=== PATIENT | male | born 1960 | race Caucasian/White ===

== ENCOUNTER 2016-09-06 13:22 | Inpatient (IN) | payer OTHER ==
[~2016-09-06] VITALS: Ht 177.8 cm; Wt 89.4 kg
[~2016-09-06 13:22] MED LIST: DILANTIN100 M1 PO; KEPPRA 500MG T500 MG PO; KEPPRA1000 M1 PO; OXYCODONE5 M1 PO
--- NOTE | 2016-09-06 13:51 | NUR ---
BIBA FOR INTENTIONAL OVERDOSE OF KEFLEX, COUMADIN, LISINOPRIL AND DILANTIN. PT STATES HE TOOK AT LEAST 7 TABLETS OF EACH. HAS BEEN DEPRESSED DUE TO BEING UNEMPLOYED AND UNABLE TO PAY BILLS. UPON ARRIVAL PT AWAKE, ALERT, SLURRED SPEECH, UNCOORDINATED CLUMBSY MOVEMENT OF LIMBS. "I WAS STUPID" PT STATES. NO IV OR MEDS GIVEN BY EMS. GLUCOSE BY EMS 128. SKIN WARM AND DRY.
--- NOTE | 2016-09-06 13:51 | NUR ---
RECIEVED TO ROOM 17. PT AWAKE, ORIENTED X3. CLUMBSY UNCOORDINATED MOVEMENTS. TWO IVS STARTED. BEA BLACK IN TO SEE PT. LABS DRAWN. PT VOIDED IN URINAL. URINE TRIO SENT---BLUE, PINK. THAKUR, SST X2 AND LAB.
--- NOTE | 2016-09-06 13:52 | NUR ---
WANDED BY SECURITY. ARRIVED WEARING URINE SOAKED SHORTS/UNDERWEAR AND NO VALUABLES. NEED TO CLEAR MEDICALLY-PUT IN HOSP GOWN FOR EASE OF MEDICAL CARE
--- NOTE | 2016-09-06 13:54 | ED GENERAL ADULT ---
See Addendum History of Present Illness General Chief Complaint: Psychiatric Related Complaint Stated Complaint: OVERDOSE +SI Source: patient, family, EMS Exam Limitations: no limitations Vital Signs & Intake/Output Vital Signs & Intake/Output Vital Signs Date Time Temp Pulse Resp B/P B/P Pulse O2 O2 Flow FiO2 Mean Ox Delivery Rate 09/06 1709 66 16 114/82 95 Room Air 09/06 1542 Room Air 09/06 1539 96.8 76 18 124/79 96 Room Air 09/06 1330 96.7 81 20 131/77 95 Room Air Allergies Coded Allergies: erythromycin base (UNKNOWN 09/06/16) tetracycline (UNKNOWN 09/06/16) Triage Note: BIBA FOR INTENTIONAL OVERDOSE OF KEFLEX, COUMADIN, LISINOPRIL AND DILANTIN. PT STATES HE TOOK AT LEAST 7 TABLETS OF EACH. HAS BEEN DEPRESSED DUE TO BEING UNEMPLOYED AND UNABLE TO PAY BILLS. UPON ARRIVAL PT AWAKE, ALERT, SLURRED SPEECH, UNCOORDINATED CLUMBSY MOVEMENT OF LIMBS. "I WAS STUPID" PT STATES. NO IV OR MEDS GIVEN BY EMS. GLUCOSE BY EMS 128. SKIN WARM AND DRY. Triage Nurses Notes Reviewed? yes Onset: Abrupt Duration: hour(s):, constant, continues in ED, getting worse Timing: single episode today Injury Environment: home Severity: moderate, severe No Modifying Factors: none HPI: 56-year-old male past medical history of seizures, antiphospholipid antibody syndrome, and previous suicide attempts presents for evaluation after an intentional overdose. Patient states that around 8:30 this morning he took an overdose of Keflex, lisinopril, warfarin, and Dilantin. Patient is unsure exactly how much he took. This is not the first time he has tried intentional overdose. He was hospitalized at [facility] 3 weeks ago for a similar situation. Patient states he feels depressed and just wanted to end his life. He currently reports he feels fatigued but denies any pain. Denies any chest pain, shortness of breath, abdominal pain, bleeding, bruising nausea, vomiting, diarrhea or any other associated symptoms. (THEO TONEY,BEA) Reconcile Medications Levetiracetam (Keppra) 1,000 MG TABLET 1 TAB PO BID SEIZURES (Reported) Lisinopril 10 MG TABLET 1 TAB PO DAILY HEART (Reported) Phenytoin (Dilantin) 100 MG CAPSULE 5 CAP PO Q48 SEIZURES (Reported) Phenytoin (Dilantin) 100 MG CAPSULE 6 CAP PO Q48 SEIZURES (Reported) Warfarin Sodium 7.5 MG TABLET 1 TAB PO DAILY BLOOD THINNER (Reported) (JENNIFER DRUMMOND,MAREN Hodge) Past History Travel History Traveled to [place] past 21 day No Medical History Any Pertinent Medical History? see below for history Neurological: seizure EENT: NONE Cardiovascular: NONE Respiratory: NONE Gastrointestinal: NONE Hepatic: NONE Renal: NONE Surgical History Surgical History: none Psychosocial History What is your primary language Malawian Family History Hx Contributory? No (THEO TONEY,BEA) Review of Systems Review of Systems Constitutional: Reports: see HPI, weakness. EENTM: Reports: no symptoms. Respiratory: Reports: no symptoms. Cardiovascular: Reports: no symptoms. GI: Reports: no symptoms. Genitourinary: Reports: no symptoms. Musculoskeletal: Reports: no symptoms. Skin: Reports: no symptoms. Neurological/Psychological: Reports: see HPI (si), depressed. Hematologic/Endocrine: Reports: no symptoms. Immunologic/Allergic: Reports: no symptoms. All Other Systems: Reviewed and Negative (THEO TONEY,BEA) Physical Exam Physical Exam General Appearance: well developed/nourished, no apparent distress, alert, anxious, lethargic Comments: General: Hemodynamically stable. Afebrile. Well-developed well-nourished person in no acute distress. Head: Atraumatic, normocephalic Eyes: EOMI bilaterally, PERRLA, conjunctiva are not injected, no discharge, no nystagmus, fundus grossly normal bilaterally Nose: Atraumatic, no rhinorrhea, mucosa is not erythematous, no epistaxis. Sinuses are non-tender Ears: TM pearly rosa color bilaterally, external canal is clear, no discharge, hearing is normal Mouth: Appropriate dentition, no gingival bleeding, moist mucus membranes, no oral lesions, tonsils not erythematous or enlarged and free of exudate. Uvula rises midline. Neck: Supple, full active ROM, no lymphadenopathy, no midline tenderness to palpation, no thyromegaly, no tracheal deviation. Back: Non-tender, full active ROM, no scoliosis, no CVA tenderness Cardiovascular: regular rate and rhythm, no murmurs, rubs, or gallops. No JVD Respiratory: Chest is nontender. Regular respiratory rate and effort. No accessory muscle use. Lungs clear to auscultation bilaterally. Abdomen: Soft, non-tender, non-distended, no organomegaly. No rebound tenderness or guarding. Normoactive bowel sounds. Extremities: No edema. No gross deformities. No joint swelling. No calf swelling or tenderness. Full active and passive ROM. Strength 5/5 in upper and lower extremities. Peripheral pulses 2+ bilaterally, Patellar DTR 2+ Neuro: No confusion. Motor and sensory function is intact. Appropriate gait. Cerebellar function intact. Skin: Warm and dry. Appropriate turgor. No lesions or bruising. No appreciable rash on exposed skin. Core Measures ACS in differential dx? No CVA/TIA Diagnosis: No Severe Sepsis Present: No Septic Shock Present: No (THEO TONEY,BEA) Progress Differential Diagnoses I considered the following diagnoses in my evaluation of the patient: Plan of Care: Orders Procedure Date/time Status Patient Data 09/06 1723 Active Admit to inpatient 09/06 1638 Active Add-on Test (ER Only) 09/06 1628 Active AMMONIA LEVEL 09/06 1420 Complete Intake & Output 09/06 1415 Active Add-on Test (ER Only) 09/06 1414 Active Add-on Test (ER Only) 09/06 1404 Active PROTHROMBIN TIME 09/06 1345 Complete MAGNESIUM 09/06 1345 Complete ETHANOL 09/06 1345 Complete TYPE & SCREEN (NOT X-MATCH) 09/06 1345 Active Add-on Test (ER Only) 09/06 1343 Active Telemetry/Transfer Professor 09/06 1329 Active Continuous Observation Monitor 09/06 1329 Active URINE DRUGS OF ABUSE 09/06 1329 Complete URINALYSIS 09/06 1329 Complete ACETOMINOPHEN 09/06 1329 Complete TROPONIN LEVEL 09/06 1329 Complete SALICYLATE 09/06 1329 Complete DILANTIN 09/06 1329 Complete COMPREHENSIVE METABOLIC PANEL 09/06 1329 Complete CBC WITHOUT DIFFERENTIAL 09/06 1329 Complete EKG 09/06 1329 Active Laboratory Tests 09/06/16 1420: Ammonia 27 09/06/16 1345: Urine Opiates Screen < 100.00, Methadone Screen < 40, Barbiturate Screen 75, Ur Phencyclidine Scrn < 6.00, Amphetamines Screen < 100, U Benzodiazepines Scrn < 85, Urine Cocaine Screen < 50, Urine Cannabis Screen < 5.00 09/06/16 1345: Anion Gap 10, Estimated GFR > 60, BUN/Creatinine Ratio 15.0, Glucose 134 H, Calcium 9.5, Magnesium 1.8, Total Bilirubin 0.4, AST 22, ALT 41, Alkaline Phosphatase 95, Troponin I < 0.01, Total Protein 6.5, Albumin 4.3, Globulin 2.2, Albumin/Globulin Ratio 2.0, PT 27.9 H, INR 2.68 H, CBC w Diff NO MAN DIFF REQ, RBC 4.53 L, MCV 97.3 H, MCH 33.0 H, RDW 12.5, MPV 7.7, Gran % 71.3, Lymphocytes % 20.7, Monocytes % 6.1, Eosinophils % 1.3, Basophils % 0.6, Absolute Granulocytes 4.2, Absolute Lymphocytes 1.2, Absolute Monocytes 0.4, Absolute Eosinophils 0.1, Absolute Basophils 0, PUBS MCHC 33.9, Salicylates < 1.0, Acetaminophen < 10.0 L, Phenytoin > 40.0 H, Serum Alcohol < 10.0, Urine Color STRAW, Urine Clarity CLEAR, Urine pH 6.0, Ur Specific [place] <= 1.005, Urine Protein NEG, Urine Ketones NEG, Urine Nitrite NEG, Urine Bilirubin NEG, Urine Urobilinogen 0.2, Ur Leukocyte Esterase NEG, Ur Microscopic SEDIMENT EXAMINED, Urine RBC RARE, Urine WBC RARE, Ur Epithelial Cells RARE, Urine Bacteria RARE H, Urine Mucus FEW, Urine Hemoglobin TRACE-INTACT H, Urine Glucose NEG Patient is currently neurologically intact. No signs of bleeding or bruising. Spoke with Yesenia at [facility] control. She recommends supportive care with IV fluids. She also recommends serial Dilantin levels every 6-8 hours until they start trending down. Patient will also need to be admitted because warfarin does not peek for another 3 or 4 days. She recommends ammonia levels coagS, and close monitoring. Patient's EKG does not show any signs of QTC prolongation. Patient will need to be admitted for further evaluation however poison control recommends monitoring in the emergency department for several hours until labs are back and appropriate disposition can be made. 3 PM: Initial lab results are all within normal limits. Kidney function a large lites are within normal limits. Patient is continued to be monitored he remains neurologically intact and hemodynamically stable. PT/INR is within normal limits. Upon reassessing patient instead of taking Keflex he is now saying he took Keppra. he'll be admitted to the ICU for close monitoring. Patient has remained neurologically intact. So far blood work is looking within normal limits. Case discussed with Dr. Mon he agrees the plan. (THEO TONEY,BEA) Diagnostic Imaging: Viewed by Me: CT Scan. Discussed w/RAD: CT Scan. Initial ED EKG: normal sinus rhythm, BORDERLINE T WAVE ABN INFERIOR LEADS Comments: PATIENT: MELISSA DOLL PRESENT AGE: 56 PATIENT ACCOUNT NO: [id number] : 56 LOCATION: [facility] ORDERING PHYSICIAN: BEA VENEGAS PA-C SERVICE DATE: 09/06/16 EXAM TYPE: CAT - CT HEAD WO IV CONTRAST EXAMINATION: CT HEAD WITHOUT CONTRAST CLINICAL INFORMATION: Fall, on Coumadin. COMPARISON: None. TECHNIQUE: Contiguous axial imaging was performed from the skull base to vertex without intravenous contrast. DLP: 1813 mGy-cm. FINDINGS: There is no evidence of acute intracranial hemorrhage or territorial infarction. No abnormal mass effect or midline shift is seen. There is a small chronic left occipital infarct. Rosa to white matter differentiation is otherwise well preserved. No extra-axial fluid collections are identified. No hydrocephalus. Proportional prominence of the ventricles and sulcal spaces is consistent with mild volume loss. Patchy periventricular and deep white matter hypoattenuation is consistent with mild small vessel ischemic changes. The osseous structures and soft tissues are normal. Mild opacification of the left maxillary sinus. The mastoid air cells and visualized portions of the paranasal sinuses are otherwise well aerated. IMPRESSION: No acute intracranial pathology. DICTATED BY: IVORY DRUMMOND,CHARLES DATE/TIME DICTATED:09/06/161442 OVERNIGHT CAREGIVER:FAB DATE/TIME TRANSCRIBED:09/06/161442 CONFIDENTIAL, DO NOT COPY WITHOUT APPROPRIATE AUTHORIZATION. (THEO TONEY,BEA) Departure Departure Disposition: STILL A PATIENT Condition: Stable Clinical Impression Primary Impression: Dilantin overdose Qualifiers: Encounter type: initial encounter Injury intent: intentional self- harm Qualified Code: T42.0X2A - Poisoning by hydantoin derivatives, intentional self-harm, initial encounter Secondary Impressions: Suicide attempt by drug ingestion Qualifiers: Encounter type: initial encounter Qualified Code: T50.902A - Poisoning by unspecified drugs, medicaments and biological substances, intentional self-harm, initial encounter Referrals: LACY DRUMMOND,TIFFANIE Dillard (PCP/Family) Departure Forms: Customer Survey General Discharge Information (BEA VENEGAS PA-C) Admission Note Spoke With: SIENNA SHAH MD Documentation of Exam: Documentation of any treatments & extenuating circumstances including Concerns Regarding Discharge (functional status, medication knowledge or non-compliance, living conditions, etc.) that warrant an admission rather than observation: [PT TO GO TO ICU FOR CLOSE MONITORING. PT'S DIALNTIN LEVEL IS GREATER THAN 40. HIS INR IS CURRENTLY THERAPUTIC BUT IT MAY GO UP IF HE OVERDOSED ON COUMADIN WELL. WILL HOLD OFF ON FFP AND VIT K FOR NOW BUT WILL MONITOR CLOSELY, WILL NEED 1 TO 1 SITTER, PSYCH CONSULT, FOLLOW LABS CLOSELY] PA/DENSITY CONTROL PUNCHER Co-Sign Statement Statement: ED Attending supervision documentation- [X] I saw and evaluated the patient. I have also reviewed all the pertinent lab results and diagnostic results. I agree with the findings and the plan of care as documented in the PA's/DENSITY CONTROL PUNCHER's documentation. [X] I have reviewed the ED Record and agree with the PA's/DENSITY CONTROL PUNCHER's documentation. [] Additions or exceptions (if any) to the PAs/DENSITY CONTROL PUNCHER's note and plan are summarized below: [] (JENNIFER DRUMMOND,MAREN Hodge) Critical Care Note Critical Care Note Critical Care Time: non-applicable (BEA VENEGAS PA-C)
[2016-09-06 13:56] LABS: ABSOLUTE BASOPHIL COUNT 0 /CUMM (0.0-0.2); ABSOLUTE EOSINOPHIL COUNT 0.1 /CUMM (0.0-0.7); ABSOLUTE GRANULOCYTE CT 4.2 /CUMM (1.4-6.5); ABSOLUTE LYMPH COUNT 1.2 /CUMM (1.2-3.4); ABSOLUTE MONOCYTE COUNT 0.4 /CUMM (0.10-0.60); BASOPHIL % 0.6 % (0.0-2.0); EOSINOPHIL % 1.3 % (0-5); GRANULOCYTE % 71.3 % (42.2-75.2); HEMATOCRIT 44.1 % (42-52); MEAN CORPUSCULAR HGB CONC 33.9 G/DL (33.0-37.0); MEAN CORPUSCULAR VOLUME 97.3 FL (80.0-94.0); MEAN PLATELET VOLUME 7.7 FL (7.4-10.4); PLATELET COUNT 248 /CUMM (130-400); RBC DISTRIBUTION WIDTH 12.5 % (11.5-14.5); RED BLOOD CELL CT 4.53 /CUMM (4.70-6.10); WHITE BLOOD CELL COUNT 5.8 /CUMM (4.8-10.8)
--- NOTE | 2016-09-06 14:07 | NUR ---
BEA VENEGAS IN TO SEE PT. DTR AT BEDSIDE
[2016-09-06] MEDS ORDERED: DILANTIN100 M1 PO (14:10)
[2016-09-06] MEDS ORDERED: LISINOPRIL10 M1 PO (14:10)
[2016-09-06] MEDS ORDERED: WARFARIN SODIU7.5 M1 PO (14:12)
[2016-09-06] MEDS ORDERED: WARFARIN SODIUM5 M1 PO (14:12)
--- NOTE | 2016-09-06 14:15 | NUR ---
IVF BOLUS STARTED
--- NOTE | 2016-09-06 14:30 | NUR ---
AMMONIA LEVEL SENT TO LAB
--- NOTE | 2016-09-06 14:42 | NUR ---
PT TAKEN TO CT SCAN
--- NOTE | 2016-09-06 14:51 | CT SCAN REPORT ---
EXAMINATION: CT HEAD WITHOUT CONTRAST CLINICAL INFORMATION: Fall, on Coumadin. COMPARISON: None. TECHNIQUE: Contiguous axial imaging was performed from the skull base to vertex without intravenous contrast. DLP: 1813 mGy-cm. FINDINGS: There is no evidence of acute intracranial hemorrhage or territorial infarction. No abnormal mass effect or midline shift is seen. There is a small chronic left occipital infarct. Rosa to white matter differentiation is otherwise well preserved. No extra-axial fluid collections are identified. No hydrocephalus. Proportional prominence of the ventricles and sulcal spaces is consistent with mild volume loss. Patchy periventricular and deep white matter hypoattenuation is consistent with mild small vessel ischemic changes. The osseous structures and soft tissues are normal. Mild opacification of the left maxillary sinus. The mastoid air cells and visualized portions of the paranasal sinuses are otherwise well aerated. IMPRESSION: No acute intracranial pathology.
--- NOTE | 2016-09-06 15:39 | NUR ---
PT RESTING QUIETLY. CONTINUES TO BE ALERT, ORIENTED. SPEECH VERY SLURRED. MUSCLES COORDINATION WEAK AND CLUMSY. PT CANNOT SIT UPRIGHT WITHOUT FALLING TO THE SIDE. ASSISTED WITH URINAL. DTR AT BEDSIDE. PT COOPERATIVE
--- NOTE | 2016-09-06 15:40 | NUR ---
REMAINS IN NSR ON MONITOR
--- NOTE | 2016-09-06 15:45 | NUR ---
CALLED TO LAB TO INQUIRE ABOUT INR RESULTS. LAB STATES THEY WILL HAVE RESULTS SHORTLY
[2016-09-06 16:24] LABS: PT 27.9 SEC (9.4-12.5)
--- NOTE | 2016-09-06 17:09 | NUR ---
PT RESTING QUIETLY. DROWSY, EASILY AROUSABLE TO VERBAL STIMULI. NSR ON MONITOR. RESP EVEN AND UNLABORED
--- NOTE | 2016-09-06 18:05 | NUR ---
PT UNABLE TO USE URINAL WITHOUT ASSISTANCE. HAS WET STRETCHER TWICE. CONDOM CATHETER PLACED ON PT
--- NOTE | 2016-09-06 19:13 | History & Physical ---
See Addendum General Information and HPI Source of Information: patient, family History of Present Illness: He is 56-year-old man with past medical history of seizures on Dilantin and Keppra, history of multiple strokes, antiphospholipid antibody syndrome and history of blood clot in brain on coumadin, hypertension and previous suicide attempt for which he was admitted at [facility] 3 weeks ago. He was BIBA after he was found altered and lethergic by his family. Patient admitted intentional overdose of his Keppra, Dilantin, Coumadin and lisinopril at 8am this morning. He also admitted being depressed recently due to being unemployed and unable to pay pills. Upon arrival to ER he was alert, awake, oriented. His vitals were temperature 96.7, pulse 81, respiratory rate 20, blood pressure 131/77 and oxygen saturation 95% on room air. Pertinent labs on admission: CBC, BP unremarkable. Albumin normal. LFTs are also normal. INR 2.68. U tox positive for Dilantin levels > 40. Neg acetaminophen or Salicylate levels. EKG: Mild T wave changes in inferior leads. No QRS or QTc interval prolongation. CT head: No acute intracranial pathology. He was given 1 L bolus of normal saline in ER. ER physician contacted poison control who recommended supportive care with IV fluids, serial Dilantin levels every 6-8 hours until they start trending down and closer monitoring. Upon my evaluation patient is drowsy with slurred speech but arousable. He is oriented 3. He is complaining of nausea, Gen weakness and denies any chest pain or discomfort, palpitations, breathing difficulty, abdominal pain, any change in urinary or bowel habits. He also denies any headache, vision changes, weakness or numbness of any part of his body. Daughter was at bedside. He lives alone in his apartment. He sees a neurologist at [facility]. Patient denies smoking. He normally drinks 2 shots of vodka every day. Last drink 2 weeks ago. Currently is unemployed. 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 Denies using any illicit drugs like marijuana or cocaine. Allergies/Medications Allergies: Coded Allergies: erythromycin base (UNKNOWN 09/06/16) tetracycline (UNKNOWN 09/06/16) Home Med list Levetiracetam (Keppra) 1,000 MG TABLET 1 TAB PO BID SEIZURES (Reported) Lisinopril 10 MG TABLET 1 TAB PO DAILY HEART (Reported) Phenytoin (Dilantin) 100 MG CAPSULE 5 CAP PO Q48 SEIZURES (Reported) Phenytoin (Dilantin) 100 MG CAPSULE 6 CAP PO Q48 SEIZURES (Reported) Warfarin Sodium 7.5 MG TABLET 1 TAB PO DAILY BLOOD THINNER (Reported) Past History Travel History Traveled to [place] past 21 day No Medical History Neurological: CVA, seizure EENT: NONE Cardiovascular: hypertension Respiratory: NONE Gastrointestinal: NONE Hepatic: NONE Renal: NONE Blood Disorders: antiphospholipid antibody syndrome Isolation History: Standard Surgical History Surgical History: none Past Family/Social History Family History Relations & Conditions if any FATHER ( of stroke at age 51). MOTHER (Alzheimer's). Psychosocial History Where do you live? Home Who Do You Live With? self Smoking Status: Never Smoked ETOH Use: alcoholic Illicit Drug Use: denies illicit drug use Employment History Employment Unemployed Review of Systems Review of Systems Constitutional: Reports: see HPI. Exam & Diagnostic Data Last 24 Hrs of Vital Signs/I&O Vital Signs Date Time Temp Pulse Resp B/P B/P Pulse O2 O2 Flow FiO2 Mean Ox Delivery Rate 09/06 1709 66 16 114/82 95 Room Air 09/06 1542 Room Air 09/06 1539 96.8 76 18 124/79 96 Room Air 09/06 1330 96.7 81 20 131/77 95 Room Air Intake & Output 09/06 1600 09/06 0800 09/06 0000 Intake Total 1000 Output Total 200 Balance 800 Intake, IV 1000 Output, Urine 200 Patient 180 lb Weight Weight Reported by Patient Measurement Method Physical Exam General Appearance Alert, Oriented X3, Cooperative, lethergic HEENT dry mucous membranes Neck No JVD Cardiovascular Regular Rate, No Murmurs Lungs Clear to Auscultation Abdomen Normal Bowel Sounds, Soft, No Tenderness Neurological Strength at 5/5 X4 Ext, Sensation Intact, Cranial Nerves 3-12 NL, slurred speech, test was attempted to check for nystagmus but patient was not following finger movement, poor coordination with finger-nose test, gait was not checked Extremities No Edema Last 24 Hrs of Labs/Naif: Laboratory Tests 09/06/16 1420: Ammonia 27 09/06/16 1345: Urine Opiates Screen < 100.00, Methadone Screen < 40, Barbiturate Screen 75, Ur Phencyclidine Scrn < 6.00, Amphetamines Screen < 100, U Benzodiazepines Scrn < 85, Urine Cocaine Screen < 50, Urine Cannabis Screen < 5.00 09/06/16 1345: Anion Gap 10, Estimated GFR > 60, BUN/Creatinine Ratio 15.0, Glucose 134 H, Calcium 9.5, Magnesium 1.8, Total Bilirubin 0.4, AST 22, ALT 41, Alkaline Phosphatase 95, Troponin I < 0.01, Total Protein 6.5, Albumin 4.3, Globulin 2.2, Albumin/Globulin Ratio 2.0, PT 27.9 H, INR 2.68 H, CBC w Diff NO MAN DIFF REQ, RBC 4.53 L, MCV 97.3 H, MCH 33.0 H, RDW 12.5, MPV 7.7, Gran % 71.3, Lymphocytes % 20.7, Monocytes % 6.1, Eosinophils % 1.3, Basophils % 0.6, Absolute Granulocytes 4.2, Absolute Lymphocytes 1.2, Absolute Monocytes 0.4, Absolute Eosinophils 0.1, Absolute Basophils 0, PUBS MCHC 33.9, Salicylates < 1.0, Acetaminophen < 10.0 L, Phenytoin > 40.0 H, Serum Alcohol < 10.0, Urine Color STRAW, Urine Clarity CLEAR, Urine pH 6.0, Ur Specific [place] <= 1.005, Urine Protein NEG, Urine Ketones NEG, Urine Nitrite NEG, Urine Bilirubin NEG, Urine Urobilinogen 0.2, Ur Leukocyte Esterase NEG, Ur Microscopic SEDIMENT EXAMINED, Urine RBC RARE, Urine WBC RARE, Ur Epithelial Cells RARE, Urine Bacteria RARE H, Urine Mucus FEW, Urine Hemoglobin TRACE-INTACT H, Urine Glucose NEG Assessment/Plan Assessment: He is 56-year-old man with past medical history of seizures on Dilantin and Keppra, history of multiple strokes, antiphospholipid antibody syndrome and history of blood clot in brain on coumadin, hypertension and previous suicide attempt for which he was admitted at [facility] 3 weeks ago. Upon arrival to ER he was alert, awake, oriented. His vitals were temperature 96.7, pulse 81, respiratory rate 20, blood pressure 131/77 and oxygen saturation 95% on room air. Pertinent labs on admission: CBC, BP unremarkable. Albumin normal. LFTs are also normal. INR 2.68. U tox positive for Dilantin levels > 40. Neg acetaminophen or Salicylate levels. EKG: Mild T wave changes in inferior leads. No QRS or QTc interval prolongation. CT head: No acute intracranial pathology. He was given 1 L bolus of normal saline in ER. patient is going to be admitted in ICU because of polypharmacy overdose (Keppra, Dilantin, Coumadin and lisinopril) and closer monitoring. PLAN * Closer ICU monitoring * Serial EKGs to assess QRS are QTc intervals * Serial Dilantin levels every 6-8 hours until start trending down * Watch for worsening of mental status/coma * Neuro checks every 4 hours * Accu-Cheks every 4 hours * Monitoring of electrolytes, Coags and LFTs * Gentle IV hydration * Will hold all his home medications for now * Ativan as needed in case of seizures * Aspiration and seizure precautions * Fall precautions * Watch for bleeding * Psych consult * DVT prophylaxis, ALPS * Continue 1:1 sitter * Nothing by mouth for now * SWALLOW EVAL in am * PT eval and treatment * Full code * JERRICA Karolina [phone] As Ranked By This Provider Problem List: 1. Suicide attempt by drug ingestion Qualifiers Encounter type: initial encounter Qualified Code: T50.902A - Poisoning by unspecified drugs, medicaments and biological substances, intentional self-harm, initial encounter Core Measures/Miscellaneous Acute Coronary Syndrome ACS Diagnosis: No Cerebrovascular Accident CVA/TIA Diagnosis: No Congestive Heart Failure CHF Diagnosis: No VTE (View Protocol) VTE Risk Factors: Acute medical illness, Age > 40 [facility] prophylaxis d/t: No contraindications No VTE Pharm Prophylaxis d/t: Blood coag disorder VTE Diagnosis: No VTE Type: NONE VTE Confirmed by (Test): NONE Sepsis (View Protocol) Severe Sepsis Present: No Septic Shock Septic Shock Present: No Miscellaneous Documentation Attending Case Discussed With: SIENNA SHAH MD Primary Care Physician: TIFFANIE HOUSE MD Patient sees these Specialists Neuro at [facility] Level of Patient Care: Critical Care (CRI) Consults Needed: Consulting Specialty: Psychiatry Consulting Physician: suicide attempt, depression
--- NOTE | 2016-09-06 19:19 | NUR ---
PT HAS BED 112-1
--- NOTE | 2016-09-06 19:44 | NUR ---
PT SLEEPING. AT BEDSIDE, GIVEN UPDATE. ASKING TO SPEAK WITH
--- NOTE | 2016-09-06 19:45 | NUR ---
REPEAT LABS DRAWN SST, BLUE PER ORDER. 3 PINK TOPS DRAWN PER REQUEST OF BLOOD BANK
[2016-09-06 20:22] LABS: PT 36.9 SEC (9.4-12.5)
--- NOTE | 2016-09-06 20:36 | NUR ---
REPORT CALLED TO SHELL IN ICU
--- NOTE | 2016-09-06 20:45 | NUR ---
IVF AT 75CC/HR STARTED
--- NOTE | 2016-09-06 20:47 | NUR ---
PT PEPPER RAMIREZ-ICU RESIDENT NOTIFIED. STATES SHE WILL ORDER MEDICATION FOR PT
--- NOTE | 2016-09-06 21:00 | NUR ---
PTS MEDICATIONS AND CLOTHING GIVEN TO TO TAKE HOME. NO OTHER VALUABLES OR BELONGING REMAINED WITH PT OR IN ED SAFE/CLOSET
[2016-09-06 21:35] VITALS: BP 110/82
[2016-09-06 22:00] VITALS: BP 92/66
[2016-09-07] VITALS (12 sets, daily range): BP systolic 90–136; BP diastolic 50–82
[2016-09-07 01:35] LABS: PT 43.2 SEC (9.4-12.5)
--- NOTE | 2016-09-07 02:13 | NUR ---
@2114 PT ARRIVED TO FLOOR FROM ER AWAKE AND ALERT X3, HR SR 60'S TO 70'S, SBP 90'S TO 100'S. NIH SCALE 3, FOLLOWS ALL COMMANDS, PUPILS 5MM AND BRISK. DR. CAMPOVERDE TO BEDSIDE TO ASSESS PT AND TALK WITH . POC DISCUSSED WITH BOTH PT AND , IVF, BLOODWORK AND EKG. SKIN INTACT NO EDEMA, PT DOES HAVE MULTIPLE FATTY TISSUE SPOTS ON UPPER EXTREMETIES, PER BASELINE. 1:1 SITTER MAINTAINED.
[2016-09-07 05:18] LABS: ABSOLUTE BASOPHIL COUNT 0 /CUMM (0.0-0.2); ABSOLUTE EOSINOPHIL COUNT 0 /CUMM (0.0-0.7); ABSOLUTE GRANULOCYTE CT 5.4 /CUMM (1.4-6.5); ABSOLUTE LYMPH COUNT 0.7 /CUMM (1.2-3.4); ABSOLUTE MONOCYTE COUNT 0.4 /CUMM (0.10-0.60); BASOPHIL % 0.3 % (0.0-2.0); EOSINOPHIL % 0.5 % (0-5); GRANULOCYTE % 83.4 % (42.2-75.2); HEMATOCRIT 39.4 % (42-52); MEAN CORPUSCULAR HGB 33.2 PG (27.0-31.0); MEAN CORPUSCULAR HGB CONC 34.1 G/DL (33.0-37.0); MEAN CORPUSCULAR VOLUME 97.5 FL (80.0-94.0); MEAN PLATELET VOLUME 7.4 FL (7.4-10.4); PLATELET COUNT 202 /CUMM (130-400); RBC DISTRIBUTION WIDTH 12.8 % (11.5-14.5); RED BLOOD CELL CT 4.04 /CUMM (4.70-6.10); WHITE BLOOD CELL COUNT 6.4 /CUMM (4.8-10.8)
[2016-09-07 05:25] LABS: PT 60.6 SEC (9.4-12.5)
--- NOTE | 2016-09-07 08:00 | NUR ---
RECEIVED @ 0700, ALERT/ORIENTED X 2-3 BUT EASILY REORIENTED, STRANGE AFFECT SB-NSR 50S-60S, SBP=90S-100S, NO CHEST PAIN C/O SOME NUMBNESS/PAIN TO LEFT ARM, BUT IS BASELINE GIVEN HIS STROKE HISTORY. NO FACIAL DROOP, NIH-0, CIWA-0. PATIENT DENIES ANXIETY BUT IS BACK AND FORTH ABOUT HAVING SUICIDAL THOUGHTS. 1:1 SITTER AT BEDSIDE AWAITING PSYCH EVAL. [place] CATH IN PLACE/WORKING WELL DRAINING CLEAR YELLOW URINE. D5-1/2 NS @ 75 MLS/HR. MONITORING COUMADIM/DILANTIN. SAFETY MAINTAINED, EMOTIONAL REASSURANCE GIVEN.
--- NOTE | 2016-09-07 08:29 | Cons- CRCU ---
General Information and HPI Allergies/Medications Allergies: Coded Allergies: erythromycin base (UNKNOWN 09/06/16) tetracycline (UNKNOWN 09/06/16) Home Med List: Levetiracetam (Keppra) 1,000 MG TABLET 1 TAB PO BID SEIZURES (Reported) Lisinopril 10 MG TABLET 1 TAB PO DAILY HEART (Reported) Phenytoin (Dilantin) 100 MG CAPSULE 5 CAP PO Q48 SEIZURES (Reported) Phenytoin (Dilantin) 100 MG CAPSULE 6 CAP PO Q48 SEIZURES (Reported) Warfarin Sodium 7.5 MG TABLET 1 TAB PO DAILY BLOOD THINNER (Reported) Past History Travel History Traveled to [place] past 21 day No Medical History Blood Transfusion Hx: No Neurological: CVA, seizure EENT: NONE Cardiovascular: hypertension Respiratory: NONE Gastrointestinal: NONE Hepatic: NONE Renal: NONE Musculoskeletal: NONE Psychiatric: depression Endocrine: NONE Blood Disorders: antiphospholipid antibody syndrome Cancer(s): NONE EDGE GLUER/Reproductive: NONE Surgical History Surgical History: 1 Family History Relations & Conditions If Any: FATHER ( of stroke at age 51). MOTHER (Alzheimer's). Psychosocial History Where Do You Live? Home Who Do You Live With? self Smoking Status: Former Smoker ETOH Use: alcoholic Illicit Drug Use: denies illicit drug use Employment History Employment: Unemployed Assessment/Plan Consult Acknowledgment - Thank you for your consult request.
[2016-09-07 11:37] LABS: ABSOLUTE BASOPHIL COUNT 0 /CUMM (0.0-0.2); ABSOLUTE EOSINOPHIL COUNT 0.1 /CUMM (0.0-0.7); ABSOLUTE GRANULOCYTE CT 5.5 /CUMM (1.4-6.5); ABSOLUTE LYMPH COUNT 0.8 /CUMM (1.2-3.4); ABSOLUTE MONOCYTE COUNT 0.5 /CUMM (0.10-0.60); BASOPHIL % 0.2 % (0.0-2.0); EOSINOPHIL % 0.8 % (0-5); GRANULOCYTE % 80.5 % (42.2-75.2); HEMATOCRIT 42.1 % (42-52); MEAN CORPUSCULAR HGB 33.1 PG (27.0-31.0); MEAN CORPUSCULAR HGB CONC 33.7 G/DL (33.0-37.0); MEAN CORPUSCULAR VOLUME 98.2 FL (80.0-94.0); MEAN PLATELET VOLUME 7.3 FL (7.4-10.4); PLATELET COUNT 242 /CUMM (130-400); RBC DISTRIBUTION WIDTH 12.4 % (11.5-14.5); RED BLOOD CELL CT 4.28 /CUMM (4.70-6.10); WHITE BLOOD CELL COUNT 6.8 /CUMM (4.8-10.8)
[2016-09-07 12:06] LABS: PT 72.8 SEC (9.4-12.5)
--- NOTE | 2016-09-07 12:11 | PN- Housestaff ---
BOB DRUMMOND,KATE 09/07/16 1210: Subjective Follow-up For: polysubstance poisoning Subjective: I saw the pt today at bed side, he is conscious, well oriented, denies any suicidal thoughts today. He c/o nausea since morning. He denies chest pain, dyspnea,orthopnea, headache. He understands his condition well. Review of Systems Constitutional: Reports: no symptoms, see HPI. Objective Last 24 Hrs of Vital Signs/I&O Vital Signs Date Time Temp Pulse Resp B/P B/P Pulse O2 O2 Flow FiO2 Mean Ox Delivery Rate 09/07 1400 97.8 74 18 100/70 09/07 1200 97.8 70 18 100/54 09/07 1000 97.5 78 22 102/71 09/07 0800 97.5 70 10 92/50 09/07 0800 97.5 70 10 92/50 96 Room Air Room Air 09/07 0800 97 Room Air Room Air 09/07 0600 98.4 70 12 102/68 09/07 0400 98.4 70 19 103/70 09/07 0400 97 Room Air 09/07 0200 97.9 70 17 102/73 09/07 0000 97.9 71 13 95/68 09/07 0000 95 Room Air 09/07 0000 97.9 71 13 90/62 95 Room Air 09/06 2200 97.4 73 18 92/66 09/06 2135 97.4 63 15 110/82 09/06 2135 94 Room Air 09/06 2135 97.4 63 15 110/82 94 Room Air 09/06 2036 69 16 122/71 95 Room Air 09/06 1945 97.4 67 16 105/68 95 Room Air 09/06 1815 98.0 78 16 110/78 97 Room Air 09/06 1709 66 16 114/82 95 Room Air 09/06 1542 Room Air 09/06 1539 96.8 76 18 124/79 96 Room Air Intake & Output 09/07 1600 09/07 0800 09/07 0000 Intake Total 623 93.3 Output Total 250 250 Balance 373 -156.7 Intake, IV 623 93.3 Intake, Oral 0 0 Number 0 0 Bowel Movements Output, Urine 250 250 Patient 198 lb Weight Weight Bed scale Measurement Method Physical Exam General Appearance: Alert, Oriented X3, Cooperative Cardiovascular: Regular Rate, Normal S1, Normal S2, No Murmurs Lungs: Clear to Auscultation Abdomen: Normal Bowel Sounds, Soft, No Tenderness Neurological: Normal Gait, Normal Speech, Strength at 5/5 X4 Ext Current Medications: Current Medications Sig/Anny Start time Last Medication Dose Route Stop Time Status Admin Dextrose/Sodium 1,000 ML .[id number] 09/06 1845 09/07 Chloride IV 1018 Lorazepam 2 MG Q2P PRN 09/06 1845 IV Magnesium Sulfate 1 GM Q2H 09/07 1245 AC 09/07 Dextrose/Water 100 ML IV 09/07 1644 1246 Metoclopramide HCl 10 MG ONCE ONE 09/07 1245 DC 09/07 IV 09/07 1246 1255 Metoclopramide HCl 10 MG ONCE ONE 09/07 0600 DC 09/07 IV 09/07 0601 0607 Ondansetron HCl 4 MG ONCE ONE 09/06 2100 DC 09/06 IV 09/06 2100 2055 Ondansetron HCl 0 .STK-MED ONE 09/06 2100 DC .ROUTE Pantoprazole Sodium 40 MG DAILY 09/07 1304 AC IV Phytonadione 10 MG ONCE ONE 09/07 1245 DC 09/07 PO 09/07 1246 1241 Phytonadione 10 MG DAILY 09/07 1054 DC PO 09/07 1055 Potassium Chloride 40 MEQ ONCE ONE 09/07 0845 CAN PO 09/07 0846 Potassium Chloride 40 MEQ ONCE ONE 09/07 0845 DC 09/07 PO 09/07 0846 1018 Potassium Chloride 10 MEQ Q1H 09/07 0615 DC 09/07 IV 09/07 0716 0800 Potassium Chloride 10 MEQ ONCE ONE 09/07 0615 DC 09/07 IV 09/07 0616 0715 Sodium Chloride 1,000 ML BOLUS ONE 09/06 1415 DC 09/06 IV 09/06 1514 1415 Last 24 Hrs of Lab/Naif Results Last 24 Hrs of Labs/Mics: Laboratory Tests 09/07/16 1115: Anion Gap 7, Estimated GFR > 60, Glucose 124 H, Calcium 7.9 L, Phosphorus 2.7, Magnesium 1.5 L, Total Bilirubin 0.2, AST 17, ALT 36, Albumin 3.4 L, PT 72.8 * H, INR 7.07 *H, CBC w Diff NO MAN DIFF REQ, RBC 4.28 L, MCV 98.2 H, MCH 33.1 H, RDW 12.4, MPV 7.3 L, Gran % 80.5 H, Lymphocytes % 11.6 L, Monocytes % 6.9, Eosinophils % 0.8, Basophils % 0.2, Absolute Granulocytes 5.5, Absolute Lymphocytes 0.8 L, Absolute Monocytes 0.5, Absolute Eosinophils 0.1, Absolute Basophils 0, PUBS MCHC 33.7, Phenytoin 39.0 H 09/07/16 0457: Anion Gap 5, Estimated GFR > 60, BUN/Creatinine Ratio 14.0, Total Bilirubin 0.1 L, Direct Bilirubin 0.1, AST 11 L, ALT 29, Alkaline Phosphatase 48, Total Protein 3.6 L, Albumin 2.0 L, PT 60.6 *H, INR 5.87 *H, CBC w Diff NO MAN DIFF REQ, RBC 4.04 L, MCV 97.5 H, MCH 33.2 H, RDW 12.8, MPV 7.4, Gran % 83.4 H, Lymphocytes % 10.3 L, Monocytes % 5.5, Eosinophils % 0.5, Basophils % 0.3, Absolute Granulocytes 5.4, Absolute Lymphocytes 0.7 L, Absolute Monocytes 0.4, Absolute Eosinophils 0, Absolute Basophils 0, PUBS MCHC 34.1, Phenytoin 25.9 H 09/07/16 0028: Anion Gap 10, Estimated GFR > 60, BUN/Creatinine Ratio 12.2, Total Bilirubin 0.2 , Direct Bilirubin 0.2, AST 20, ALT 43, Alkaline Phosphatase 84, Total Protein 6.1 L, Albumin 4.1, PT 43.2 *H, INR 4.17 *H, Phenytoin 50.0 H 09/06/16 1927: Anion Gap 8, Total Bilirubin 0.3, Direct Bilirubin 0.3, AST 20, ALT 39, Alkaline Phosphatase 86, Total Protein 5.9 L, Albumin 4.0, PT 36.9 H, INR 3.56 H, Phenytoin 39.6 H 09/06/16 1852: Sodium Cancelled, Potassium Cancelled, Chloride Cancelled, Carbon Dioxide Cancelled, Anion Gap Cancelled, BUN Cancelled, Creatinine Cancelled, BUN/ Creatinine Ratio Cancelled, Total Bilirubin Cancelled, Direct Bilirubin Cancelled, AST Cancelled, ALT Cancelled, Alkaline Phosphatase Cancelled, Total Protein Cancelled, Albumin Cancelled Microbiology 09/06 2240 UPPER RESP: Surveillance Culture - RECD 09/06 2240 GI: Surveillance Culture - RECD Orders CIWA Score (last 24 hrs): score is 0.Highest in 24 hrs is 4 Lines/Diet/Fluids Fluids/Infusions: ffp for supratherapeutic INR Assessment/Plan Assessment: He is 56-year-old man with past medical history of seizures on Dilantin and Keppra, history of multiple strokes, antiphospholipid antibody syndrome and history of blood clot in brain on coumadin, hypertension and previous suicide attempt for which he was admitted at [facility] 3 weeks ago CAME WITH POLY SUBSTANCE OVERDOSE (keppra, dilantin,coumadin,lisinopril) admiitted in ICU for close monitoring problem list #poly sbstance ovedoes #supratherapeutic INR #HT #APLA Pt had at PT-72.8,INR -7.07. In view of bleeding risk, FFP was infused and vit k 10mg po given.ALL his meds (keppra, dilantin,coumadin,lisinopril) held.on d51/2 NS. PLAN: * Julia ICU monitorin * FFP,VIT K as needed * q6 coag,cbc,icu * psych consult * ativan if sezures * dilantin level q6 * w/f bleeding * npo today * julia 1:1 sitter * AM ekg for qtc prolongation Problem List: 1. Dilantin overdose 2. Suicide attempt by drug ingestion Pain Ratin Pain Location: none Pain Goal: less than 2 Pain Plan: none Tomorrow's Labs & Rationales: icu,cbc,ekg,coag DVT/Prophylaxis: mechanical Consulting Request: Consulting Specialty: Psychiatry Consulting Physician: suicide attempt, depression GILDARDO SHAH MD 09/07/16 1501: Attending MD Review Statement Attending Statement Attending MD Statement: examined this patient, discuss w/resident/PA/AUTISTIC TEACHER, agreed w/resident/PA/AUTISTIC TEACHER, reviewed EMR data (avail) Attending Assessment/Plan: 56M PMH seizures on Dilantin and Keppra, history of multiple strokes, antiphospholipid antibody syndrome and history of blood clot in brain on coumadin, hypertension and previous suicide attempt for which he was admitted at [facility] 3 weeks ago admitted with intentional drug overdose of Dilantin, Keppra, and Coumadin. Patient has felt suicidal lately. He denies any symptoms at this time. Vitals are stable and labs are normal. INR >7 today. 1. Suicide attempt 2. Intentional drug overdose with Keppra, Dilantin, Coumadin 3. Supratherapeutic INR Plan - Admit to ICU - Give Vitamin K 10mg and FFP 1 unit - IV hydration - Serial EKG - Telemetry monitoring - CBC, CMP, INR q6h - Monitor Dilantin level - Contact poison control if any change in status - Neuro checks - Hold all medications - Bedside sitter - Psychiatry consult - DVT PPx with ALPS
--- NOTE | 2016-09-07 13:14 | NUR ---
PATIENT VOMITED @ 1300 APPROX 100 MLS CLEAR/YELLOW FLUID C/O NAUSEA PREVIOUSLY, INFORMED DR. BRAUN. 10 MG IV REGLAN ORDERED AND GIVEN W/ SOME RELIEF AFTER VOMITING. PATIENT DENIES OTHER PAIN. VSS. MAG 1.5 AND FIRST RUN OF 1 GRAM RUNNING. TO CONTINUE MONITORING.
--- NOTE | 2016-09-07 16:27 | Cons- Psychiatry ---
See Addendum Psychiatric Consult Date of Consult: 09/07/16 Reason for Consult: intential OD History of Present Illness: 56 y/o but seperated CM ICU admission after he intentially od on his anti siezure medications of keppra and dilantain. Patient has a significant medical comorbities antiphosolipid syndrome with recurrent clots, siezure d/o htn states he OD with intent to due to multiple psychosocial stressors. He has been feelign increasingly depressed feeling desperate hopeless helpless with poor sleep in addition anhedonia. He reports hehas access to a shot gun and pondered using that but worried he would make a mess of his apt and choose to od instead. He deneis previous manic sx of ptsd trauma. He states he is also a life long alcohol drinking and has been cutting down to approx 2 shots of liquor a day. 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 He denies any other illicit drug use, denies any formal treatment for substance use. he currently rates his mood as sad "if i could only get a job i wouldnt have financial difficulties". Past Psych: he reports no formal treatments no previous SA no detox/rehab no medication trials been drinking since age 14 with heavier periods of consumptsion He denies family hx of mental health or substance use. [place], unemployed past 1 year has 4 children older and but . MSE: CM, Laying in bed dressed in hospital gown, disheveled poor eye contact. + PMR. soft slow speech. Sad mood dysphoric/depressed affect. linear denies current si/hi or psychosis. i/j both limited a/p MDD w/o psychosis, alcohol dep -continue 1;1, cant leave likely needs inpatient psych admission when medically cleared, has high risk factors ie access to shot gun at home hopeless lack of support -hold anti seizure medications for 24 as there continues to be some sedation/ confusion given acute intoxication/od -consult team to f/u and will likely need to speak [facility] family regarding concerning presentation Allergies: Coded Allergies: erythromycin base (UNKNOWN 09/06/16) tetracycline (UNKNOWN 09/06/16) Past History Past Medical History Neurological: CVA, seizure EENT: NONE Cardiovascular: hypertension Respiratory: NONE Gastrointestinal: NONE Hepatic: NONE Renal: NONE Musculoskeletal: NONE Psychiatric: depression Endocrine: NONE Blood Disorders: antiphospholipid antibody syndrome Cancer(s): NONE JOURNEY LINEMAN/Reproductive: NONE Past Surgical History Surgical History: 1
[2016-09-07 17:44] LABS: ABSOLUTE BASOPHIL COUNT 0 /CUMM (0.0-0.2); ABSOLUTE EOSINOPHIL COUNT 0.1 /CUMM (0.0-0.7); ABSOLUTE GRANULOCYTE CT 4.9 /CUMM (1.4-6.5); ABSOLUTE LYMPH COUNT 0.8 /CUMM (1.2-3.4); ABSOLUTE MONOCYTE COUNT 0.4 /CUMM (0.10-0.60); BASOPHIL % 0.5 % (0.0-2.0); GRANULOCYTE % 78.3 % (42.2-75.2); HEMATOCRIT 42.4 % (42-52); MEAN CORPUSCULAR HGB 32.7 PG (27.0-31.0); MEAN CORPUSCULAR HGB CONC 33.3 G/DL (33.0-37.0); MEAN CORPUSCULAR VOLUME 98.2 FL (80.0-94.0); MEAN PLATELET VOLUME 7.5 FL (7.4-10.4); PLATELET COUNT 227 /CUMM (130-400); RBC DISTRIBUTION WIDTH 12.6 % (11.5-14.5); RED BLOOD CELL CT 4.32 /CUMM (4.70-6.10); WHITE BLOOD CELL COUNT 6.3 /CUMM (4.8-10.8)
[2016-09-07 17:48] LABS: PT 35.2 SEC (9.4-12.5)
[2016-09-07 23:42] LABS: PT 56.1 SEC (9.4-12.5)
[2016-09-08] VITALS (11 sets, daily range): BP systolic 103–150; BP diastolic 26–92
[2016-09-08 05:27] LABS: ABSOLUTE BASOPHIL COUNT 0 /CUMM (0.0-0.2); ABSOLUTE EOSINOPHIL COUNT 0.1 /CUMM (0.0-0.7); ABSOLUTE GRANULOCYTE CT 3.5 /CUMM (1.4-6.5); ABSOLUTE MONOCYTE COUNT 0.4 /CUMM (0.10-0.60); BASOPHIL % 0.3 % (0.0-2.0); EOSINOPHIL % 1.3 % (0-5); HEMATOCRIT 40.5 % (42-52); MEAN CORPUSCULAR HGB 32.8 PG (27.0-31.0); MEAN CORPUSCULAR HGB CONC 33.6 G/DL (33.0-37.0); MEAN CORPUSCULAR VOLUME 97.6 FL (80.0-94.0); MEAN PLATELET VOLUME 7.2 FL (7.4-10.4); PLATELET COUNT 212 /CUMM (130-400); RBC DISTRIBUTION WIDTH 12.5 % (11.5-14.5); RED BLOOD CELL CT 4.15 /CUMM (4.70-6.10)
[2016-09-08 06:43] LABS: PT 61.1 SEC (9.4-12.5)
--- NOTE | 2016-09-08 08:46 | PN- Resident CRCU ---
Impression/Plan Plan DVT/Prophylaxis: mechanical
--- NOTE | 2016-09-08 08:53 | PN- Housestaff ---
JULI DRUMMOND,MATTHIAS 09/08/16 0852: Subjective Follow-up For: polypharmacy overdose Subjective: Seen and examined at [facility]. He is laying in bed comfortable, does not endorse any acute complaint such as acute bleeding,chest pain/palpitation,fever/chills, tremors/seizure like activities, or abdominal pain. No acute o/n event reported by [facility] staff. Review of Systems Constitutional: Reports: see HPI. Objective Last 24 Hrs of Vital Signs/I&O Vital Signs Date Time Temp Pulse Resp B/P B/P Pulse O2 O2 Flow FiO2 Mean Ox Delivery Rate 09/08 1000 99.0 76 16 122/84 09/08 0800 99.1 74 17 150/90 09/08 0600 98.2 78 16 117/86 09/08 0400 98.2 70 18 119/26 09/08 0400 94 Room Air 09/08 0200 98.8 70 16 120/82 09/08 0000 99.0 73 19 128/82 09/08 0000 99.0 73 19 128/82 95 Room Air 09/07 2200 97.0 82 20 136/81 09/07 2000 97.4 72 18 114/82 09/07 2000 94 Room Air 09/07 1800 97.4 67 12 110/72 09/07 1600 98.4 69 16 120/70 09/07 1600 98.4 69 16 120/70 96 Room Air Room Air 09/07 1600 96 Room Air Room Air 09/07 1400 97.8 74 18 100/70 09/07 1200 97.8 70 18 100/54 09/07 1200 96 Room Air Room Air Intake & Output 09/08 1600 09/08 0800 09/08 0000 Intake Total 933 1008 Output Total 600 1750 Balance 333 -742 Intake, Blood 350 327 Product Intake, IV 363 631 Intake, Oral 220 50 Number 0 0 Bowel Movements Output, Urine 600 1750 Physical Exam General Appearance: Alert, Oriented X3, Cooperative, No Acute Distress Lymphatic: Cervical nl Cardiovascular: Regular Rate, Normal S1, Normal S2 Lungs: Clear to Auscultation, Normal Air Movement Abdomen: Normal Bowel Sounds, Soft, No Tenderness Neurological: Normal Speech, Normal Tone, Sensation Intact Extremities: No Cyanosis, No Edema, Normal Pulses Assessment/Plan Assessment: This is a 56-year-old man with past medical history of seizures on Dilantin and Keppra, history of multiple strokes, antiphospholipid antibody syndrome and history of blood clot in brain on coumadin, hypertension and previous suicide attempt for which he was admitted at [place] 3 weeks ago CAME WITH POLY SUBSTANCE OVERDOSE (keppra, dilantin,coumadin,lisinopril) admiitted in ICU for close monitoring Impression #poly sbstance ovedoSE #supratherapeutic INR. ( PT-61.1, INR -5.92 s/p 10mg Vitamin K and 2 units FFP) #HT #APLA PLAN: * Yudelka ICU monitoring * Will await 11 am INR values, if upward trend, will give 2 units of FFP. * continue q6 coag and phenytoin levels * will await further reccomendation from psych * ativan prn for sezures * will continue to monitor for any acute bleed * yudelka 1:1 sitter Problem List: 1. Dilantin overdose 2. Suicide attempt by drug ingestion Pain Ratin Pain Location: NONE Pain Goal: Remain pain free Pain Plan: PER PATHWAY Tomorrow's Labs & Rationales: CBC PHENYTOIN LEVEL Consulting Request: Consulting Specialty: Psychiatry Consulting Physician: suicide attempt, depression SIENNA SHAH MD 09/08/16 1340: Attending MD Review Statement Attending Statement Attending MD Statement: examined this patient, discuss w/resident/PA/ELECTRICIAN STATION ASSISTANT, agreed w/resident/PA/ELECTRICIAN STATION ASSISTANT, reviewed EMR data (avail) Attending Assessment/Plan: 56M PMH seizures on Dilantin and Keppra, history of multiple strokes, antiphospholipid antibody syndrome and history of blood clot in brain on coumadin, hypertension and previous suicide attempt for which he was admitted at [facility] 3 weeks ago admitted with intentional drug overdose of Dilantin, Keppra, and Coumadin. Patient has felt suicidal lately. He denies any symptoms at this time. Vitals are stable and labs are normal. INR >7 today. 1. Suicide attempt 2. Intentional drug overdose with Keppra, Dilantin, Coumadin 3. Supratherapeutic INR Plan - Admit to ICU - If INR continues to rise or if signs of bleeding then give additional 1 unit of FFP - IV hydration - Serial EKG - Telemetry monitoring - CBC, CMP, INR q6h - Monitor Dilantin level - Contact poison control if any change in status - Neuro checks - Hold all medications - Bedside sitter - Psychiatry consult - DVT PPx with ALPS
[2016-09-08 12:14] LABS: PT 59.6 SEC (9.4-12.5)
--- NOTE | 2016-09-08 19:05 | NUR ---
RECEIVED PATIENT AT 0800 ALERT/ORIENTED X 3, 1:1 SITTER FOR SUICIDAL IDEATIONS PATIENT DENIES SI AT THIS MOMENT BUT SITTER TO REMAIN PER PSYCH. PATIENT CASTILLO, GETS OOB AND WALKS TO THE BR. VOIDS IN TOILET. NSR ON THE MONITOR 70S-80S, QAM=[id number]. DENIES CHEST PAIN. NIH-0, CIWA-0. PATIENT DENIES ANXIETY. ON ROOM AIR, SATTING 94%. NO SHORTNESS OF BREATH. CLEAR BREATH SOUNDS/DIMINISHED TO THE LEFT/LOWER LUNGS. ABDOMEN SOFT/NONTENDER, +BS. TOLERATING REGULAR DIET WELL AND DENIES NAUSEA AND PAIN. GETTING D5-1/2 NS AT 75 MLS/HR. TO CONTINUE ASSESSING THE COUMADIN/DILANTIN LEVELS.
[2016-09-08 19:18] LABS: PT 79.8 SEC (9.4-12.5)
[2016-09-09] VITALS: BP 124/86
[2016-09-09 01:23] LABS: PT 41.6 SEC (9.4-12.5)
[2016-09-09 02:00] VITALS: BP 104/72
[2016-09-09 04:00] VITALS: BP 109/74
[2016-09-09 05:39] LABS: ABSOLUTE BASOPHIL COUNT 0 /CUMM (0.0-0.2); ABSOLUTE EOSINOPHIL COUNT 0.1 /CUMM (0.0-0.7); ABSOLUTE GRANULOCYTE CT 3.2 /CUMM (1.4-6.5); ABSOLUTE LYMPH COUNT 1.1 /CUMM (1.2-3.4); ABSOLUTE MONOCYTE COUNT 0.5 /CUMM (0.10-0.60); BASOPHIL % 0.9 % (0.0-2.0); EOSINOPHIL % 2.8 % (0-5); GRANULOCYTE % 65.6 % (42.2-75.2); HEMATOCRIT 40.8 % (42-52); MEAN CORPUSCULAR HGB 32.7 PG (27.0-31.0); MEAN CORPUSCULAR HGB CONC 33.3 G/DL (33.0-37.0); MEAN CORPUSCULAR VOLUME 98.2 FL (80.0-94.0); MEAN PLATELET VOLUME 7.7 FL (7.4-10.4); PLATELET COUNT 197 /CUMM (130-400); RBC DISTRIBUTION WIDTH 12.5 % (11.5-14.5); RED BLOOD CELL CT 4.16 /CUMM (4.70-6.10); WHITE BLOOD CELL COUNT 4.9 /CUMM (4.8-10.8)
[2016-09-09 05:49] LABS: PT 53.7 SEC (9.4-12.5)
--- NOTE | 2016-09-09 07:46 | PN- Housestaff ---
BOB DRUMMOND,KATE 09/09/16 0746: Subjective Follow-up For: polysubstance poisoning Subjective: I saw the pt today at bedside. He says he feels fine and wants to go home. He denies chestpain, dyspnea, headache,vomiting. No over night events. Review of Systems Constitutional: Reports: no symptoms. Objective Last 24 Hrs of Vital Signs/I&O Vital Signs Date Time Temp Pulse Resp B/P B/P Pulse O2 O2 Flow FiO2 Mean Ox Delivery Rate 09/09 08 98.4 84 20 140/90 94 Room Air 09/09 0400 66 18 109/74 09/09 0400 94 Room Air 09/09 0200 64 10 104/72 09/09 0000 98.5 75 13 124/86 09/09 0000 98.5 75 13 124/86 95 Room Air 09/09 0000 95 Room Air 09/08 2200 68 19 103/79 09/08 2000 98.5 88 30 122/92 09/08 2000 94 Room Air 09/08 1800 99.0 80 18 120/72 09/08 1600 99.0 78 16 150/90 09/08 1600 93 Room Air Room Air 09/08 1600 99.0 78 16 150/90 93 Room Air Room Air Intake & Output 09/09 1600 09/09 0800 09/09 0000 Intake Total 561 967 Output Total 3 700 Balance 558 267 Intake, Blood 100 197 Product Intake, IV 461 450 Intake, Oral 0 320 Number 0 0 Bowel Movements Output, Urine 3 700 Physical Exam General Appearance: Alert, Oriented X3, Cooperative Neck: Supple Cardiovascular: Regular Rate, Normal S1, Normal S2 Lungs: Clear to Auscultation Abdomen: Soft, No Tenderness Neurological: Normal Gait, Normal Speech, Normal Tone Extremities: Normal Pulses Current Medications: Current Medications Sig/Anny Start time Last Medication Dose Route Stop Time Status Admin Dextrose/Sodium 1,000 ML .[id number] 09/06 1845 DC 09/09 Chloride IV 0017 Lorazepam 2 MG Q2P PRN 09/06 1845 AC 09/09 IV 0830 Magnesium Oxide 400 MG BID 09/08 1000 AC 09/09 PO 0948 Omeprazole 40 MG DAILY AC 09/10 0700 AC PO Pantoprazole Sodium 40 MG DAILY 09/07 1304 DC 09/08 IV 1019 Last 24 Hrs of Lab/Naif Results Last 24 Hrs of Labs/Mics: Laboratory Tests 09/09/16 0505: Anion Gap 8, Estimated GFR > 60, Glucose 91, Calcium 9.2, Phosphorus 3.3, Magnesium 1.8, Total Bilirubin 0.4, AST 38, ALT 72, Albumin 3.9, PT 53.7 *H, INR 5.20 *H, CBC w Diff NO MAN DIFF REQ, RBC 4.16 L, MCV 98.2 H, MCH 32.7 H, RDW 12.5, MPV 7.7, Gran % 65.6, Lymphocytes % 21.4, Monocytes % 9.3, Eosinophils % 2.8, Basophils % 0.9, Absolute Granulocytes 3.2, Absolute Lymphocytes 1.1 L, Absolute Monocytes 0.5, Absolute Eosinophils 0.1, Absolute Basophils 0, PUBS MCHC 33.3, Phenytoin 38.3 H 09/09/16 0100: PT 41.6 H, INR 4.02 *H, Phenytoin 37.4 H 09/08/16 1710: PT 79.8 *H, INR 7.76 *H, Phenytoin 28.3 H Orders CIWA Score (last 24 hrs): maximum 11 Lines/Diet/Fluids Restraints: none Assessment/Plan Assessment: This is a 56-year-old man with past medical history of seizures on Dilantin and Keppra, history of multiple strokes, antiphospholipid antibody syndrome and history of blood clot in brain on coumadin, hypertension and previous suicide attempt for which he was admitted at [facility] 3 weeks ago CAME WITH POLY SUBSTANCE OVERDOSE (keppra, dilantin,coumadin,lisinopril) admiitted in ICU for close monitoring Impression #poly substance ovedosa #supratherapeutic INR. ( PT-61.1, INR -5.92 s/p 10mg Vitamin K and 2 units FFP) #HT #APLA PLAN: * Julia ICU monitoring * three units FFP given.PT-53.7,INR-5.20 * continue q6 coag and phenytoin levels * will await further reccomendation from psych * ativan prn for sezures * will continue to monitor for any acute bleed * julia 1:1 sitter Problem List: 1. Suicide attempt by drug ingestion 2. Seizure 3. Dilantin overdose Pain Ratin Pain Location: NONE Pain Goal: Pain 4 or less Pain Plan: NONE Tomorrow's Labs & Rationales: CBC,ICU,PT/INR,DILANTIN LEVELS. DVT/Prophylaxis: mechanical Consulting Request: Consulting Specialty: Psychiatry Consulting Physician: suicide attempt, depression JANNET HAMPTON MD 09/09/16 1842: Attending MD Review Statement Attending Statement Attending MD Statement: examined this patient, discuss w/resident/PA/SUBSURFACE AUGMENTEE OPERATOR, agreed w/resident/PA/SUBSURFACE AUGMENTEE OPERATOR, reviewed EMR data (avail), amended to note Attending Assessment/Plan: The patient was seen and discussed with house staff. Dilantin level still elevated as is INR (which is higher than yesterday). Agree with vitamin K administration today. Continue telemetry monitoring (may transfer to tele) and 1 :1 sitter. Will obtain Neurology consult regarding medications. Add tox screen to admission labs. Please obtain records from [facility]. The patient may not sign out AMA as per psychiatry. Await psych follow-up.
[2016-09-09 08:00] VITALS: BP 140/90
--- NOTE | 2016-09-09 09:39 | NUR ---
PT DEMONSTRATING INCREASED AGITATION THIS AM. RIPPED OFF MONITOR, UNABLE TO ENGAGE HIM IN A COHERENT CONVERSATION, HE WAS RAMBLING AND ATTEMPTED TO RIP OUT IVS. MD CALLED TO BEDSIDE, IV ATIVAN GIVEN .HE CALMED DOWN WITNIN 15 MINUTES, WE WERE ABLE TO WALK HIM TO BATHROOM, HE IS UNSTEADY ON HIS FEET. HE WAS ABLE TO WASH UP INDEPENDENTLY AND ATE BREAKFAST. MONITOR NSR.
[2016-09-09 16:00] VITALS: BP 142/70
[2016-09-09 16:07] LABS: PT 60.4 SEC (9.4-12.5)
--- NOTE | 2016-09-09 19:31 | Transfer of Care Summary ---
Hospital Course Course Hospital Course: He is 56-year-old man with past medical history of seizures on Dilantin and Keppra, history of multiple strokes, antiphospholipid antibody syndrome and history of blood clot in brain on coumadin, hypertension and previous suicide attempt for which he was admitted at [facility] 3 weeks ago. He was BIBA after he was found altered and lethergic by his family. Patient admitted intentional overdose of his Keppra, Dilantin, Coumadin and lisinopril. He also admitted being depressed recently due to being unemployed and unable to pay pills. Upon arrival to ER he was alert, awake, oriented.ER physician contacted poison control who recommended supportive care with IV fluids, serial Dilantin levels every 6-8 hours until they start trending down and closer monitoring. patient was drowsy with slurred speech but arousable, oriented 3. He is complaining of nausea, Gen weakness and denies any chest pain or discomfort, palpitations, breathing difficulty, abdominal pain, any change in urinary or bowel habits. He also denies any headache, vision changes, weakness or numbness of any part of his body. Patient was admitted in ICU for close monitoring. ED COURSE VITALS:BP133/77,PR81,RR-20,SAT-95% LABS:-PT-27.9,INR-2.68,DILANTIN LEVELS-44.5,HB-14.[address]-No acute intracranial pathology. EKG: Mild T wave changes in inferior leads. No QRS or QTc interval prolongation. ICU COURSE: Patient was admitted in ICU for close monitoring of his Dilantin levels. Later patient was also found to have a supratherapeutic INR. PT, INR, Dilantin levels were monitored serially every Q6. Pt was transfused three FFP and twice vit k 10 mg was given. His levels are trending down.Pt was seen by neurologist who suggested to cotinue Keppra 1000mg bid. He is also followed by psych who suggested inpatient admission after medically stable. Pt is medically stable. Can be trasferred to telemetry. PT-27.9 ---56.1---79.8---45.5 INR-----2.68---4.17---7.76---4.40 DILANTIN LEVELS ------44.5---39.6---33.7 Complications: 3 BAGS OF FFP TRANSFUSED. Significant Procedures: HEAD CT:09/06/16 There is no evidence of acute intracranial hemorrhage or territorial infarction. No abnormal mass effect or midline shift is seen. There is a small chronic left occipital infarct. Rosa to white matter differentiation is otherwise well preserved. No extra-axial fluid collections are identified. No hydrocephalus. Proportional prominence of the ventricles and sulcal spaces is consistent with mild volume loss. Patchy periventricular and deep white matter hypoattenuation is consistent with mild small vessel ischemic changes. The osseous structures and soft tissues are normal. Mild opacification of the left maxillary sinus. The mastoid air cells and visualized portions of the paranasal sinuses are otherwise well aerated. IMPRESSION: No acute intracranial pathology. Assessment/Plan: This is a 56-year-old man with past medical history of seizures on Dilantin and Keppra, history of multiple strokes, antiphospholipid antibody syndrome and history of blood clot in brain on coumadin, hypertension and previous suicide attempt for which he was admitted at [facility] 3 weeks ago CAME WITH POLY SUBSTANCE OVERDOSE (keppra, dilantin,coumadin,lisinopril) admiitted in ICU for close monitoring Impression #poly substance ovedose #supratherapeutic INR. ( PT-45.5, INR -4.4 ) #HT #APLA PLAN: * Tele hold * Since admission three units FFP given. * continue q12 coag and phenytoin levels * ativan prn for seizures * will continue to monitor for any acute bleed * julia 1:1 sitter * start keppra 1000mg as per neuro * psych f/u
[2016-09-09 20:00] VITALS: BP 144/94
[2016-09-09 20:59] LABS: PT 64.1 SEC (9.4-12.5)
[2016-09-10] VITALS: BP 104/84
[2016-09-10 00:22] VITALS: BP 104/84
[2016-09-10 01:50] LABS: PT 61.5 SEC (9.4-12.5)
--- NOTE | 2016-09-10 07:05 | PN- Housestaff ---
See Addendum Subjective Follow-up For: supratherapeutic INR Subjective: I saw the pt today at bedside. He is sitting comfortably in his bed. He slept well and had his breakfast. He complaints of left arm weakness and pain which is on and off.He denies chestpain, headache,vomitting, abd pain. No over night events. Review of Systems Constitutional: Reports: no symptoms. Objective Last 24 Hrs of Vital Signs/I&O Vital Signs Date Time Temp Pulse Resp B/P B/P Pulse O2 O2 Flow FiO2 Mean Ox Delivery Rate 09/10 08 98.1 62 20 141/96 09/10 0800 95 Room Air 09/10 0800 98.1 62 20 141/96 95 Room Air Room Air 09/10 0022 98.9 70 14 104/84 95 Room Air 09/10 0000 98.9 70 14 104/84 09/10 0000 94 Room Air 09/09 2200 65 13 09/09 2000 98.3 76 25 144/94 09/09 2000 95 Room Air 09/09 1600 98.4 74 20 142/70 94 Room Air Intake & Output 09/10 1600 09/10 0800 09/10 0000 Intake Total 0 650 Output Total Balance 0 650 Intake, IV 0 0 Intake, Oral 0 650 Number 0 0 Bowel Movements Physical Exam General Appearance: Alert, Oriented X3, Cooperative HEENT: Atraumatic Neck: Supple Cardiovascular: Regular Rate, Normal S1, Normal S2 Lungs: Clear to Auscultation Abdomen: Soft Neurological: left arm strength 3/5,sensation intact.reflexes nrl. rt arm strength5/5,normal sensastion. Current Medications: Current Medications Sig/Anny Start time Last Medication Dose Route Stop Time Status Admin Levetiracetam 1,000 MG BID 09/10 1000 AC PO Lorazepam 2 MG Q2P PRN 09/06 1845 AC 09/09 IV 0830 Magnesium Oxide 400 MG BID 09/08 1000 AC 09/09 PO 2222 Omeprazole 40 MG DAILY AC 09/10 0700 AC 09/10 PO 0659 Phytonadione 2.5 MG ONCE ONE 09/09 1730 DC 09/09 PO 09/09 1731 1937 Last 24 Hrs of Lab/Naif Results Last 24 Hrs of Labs/Mics: Laboratory Tests 09/10/16 0630: Phenytoin Cancelled 09/10/16 0630: Anion Gap 9, Estimated GFR > 60, Glucose 87, Calcium 9.5, Phosphorus 3.8, Magnesium 1.8, Total Bilirubin 0.5, AST 33, ALT 72, Albumin 4.2, PT 45.5 *H, INR 4.40 *H, CBC w Diff NO MAN DIFF REQ, RBC 4.46 L, MCV 97.1 H, MCH 32.8 H, RDW 12.6, MPV 7.9, Gran % 65.2, Lymphocytes % 22.7, Monocytes % 7.3, Eosinophils % 4.5, Basophils % 0.3, Absolute Granulocytes 3.2, Absolute Lymphocytes 1.1 L, Absolute Monocytes 0.4, Absolute Eosinophils 0.2, Absolute Basophils 0, PUBS MCHC 33.8, Phenytoin 33.7 H 09/10/16 0055: PT 61.5 *H, INR 5.96 *H, Phenytoin 25.5 H 09/09/16 1845: PT 64.1 *H, INR 6.22 *H, Phenytoin 30.3 H 09/09/16 1300: PT 60.4 *H, INR 5.85 *H, Phenytoin 27.9 H Orders CIWA Score (last 24 hrs): 0 Lines/Diet/Fluids Restraints: none Assessment/Plan Assessment: This is a 56-year-old man with past medical history of seizures on Dilantin and Keppra, history of multiple strokes, antiphospholipid antibody syndrome and history of blood clot in brain on coumadin, hypertension and previous suicide attempt for which he was admitted at [facility] 3 weeks ago CAME WITH POLY SUBSTANCE OVERDOSE (keppra, dilantin,coumadin,lisinopril) admiitted in ICU for close monitoring Impression #poly substance ovedose #supratherapeutic INR. ( PT-45.5, INR -4.4 ) #HT #APLA PLAN: * Tele hold * Since admission three units FFP given. * continue q12 coag and phenytoin levels * ativan prn for seizures * will continue to monitor for any acute bleed * julia 1:1 sitter * start keppra 1000mg as per neuro * psych f/u Problem List: 1. Dilantin overdose 2. Suicide attempt by drug ingestion Pain Ratin Pain Location: left arm Pain Goal: Pain 4 or less Pain Plan: tylenol 650mg q4 prn Tomorrow's Labs & Rationales: cbc,pt,inr Consulting Request: Consulting Specialty: Psychiatry Consulting Physician: suicide attempt, depression
[2016-09-10 07:50] LABS: ABSOLUTE BASOPHIL COUNT 0 /CUMM (0.0-0.2); ABSOLUTE EOSINOPHIL COUNT 0.2 /CUMM (0.0-0.7); ABSOLUTE GRANULOCYTE CT 3.2 /CUMM (1.4-6.5); ABSOLUTE LYMPH COUNT 1.1 /CUMM (1.2-3.4); ABSOLUTE MONOCYTE COUNT 0.4 /CUMM (0.10-0.60); BASOPHIL % 0.3 % (0.0-2.0); EOSINOPHIL % 4.5 % (0-5); GRANULOCYTE % 65.2 % (42.2-75.2); HEMATOCRIT 43.3 % (42-52); MEAN CORPUSCULAR HGB 32.8 PG (27.0-31.0); MEAN CORPUSCULAR HGB CONC 33.8 G/DL (33.0-37.0); MEAN CORPUSCULAR VOLUME 97.1 FL (80.0-94.0); MEAN PLATELET VOLUME 7.9 FL (7.4-10.4); PLATELET COUNT 209 /CUMM (130-400); RBC DISTRIBUTION WIDTH 12.6 % (11.5-14.5); RED BLOOD CELL CT 4.46 /CUMM (4.70-6.10)
[2016-09-10 08:00] VITALS: BP 141/96
[2016-09-10 08:19] LABS: PT 45.5 SEC (9.4-12.5)
--- NOTE | 2016-09-10 10:17 | PN- Psychiatry ---
Assessment/Plan Impression: Identifying Info: 56-year-old male brought in by ambulance on 09/06/2016 status post overdose on Dilantin, lisinopril, warfarin, and Keppra. Currently in critical care unit. SUBJECTIVE Patient states she is feeling "much better." Reports that while overdose happened over few minutes it was somewhat impulsive. He endorses multiple psychosocial stressors including lack of job. At present he is agreeable to going to inpatient psychiatry voluntarily. Brief ROS Gait: OOB+1 Sleep: Adequate Appetite: Adequate OBJECTIVE Mental Status Exam Presentation/Appearance: Cooperative with evaluation. Hospital garb. Sitting in bed, calm and pleasant. Orientation: Oriented to self, place, situation, month but not date Sensorium: Awake and alert Eye contact: Appropriate Affect: Somewhat blunted Mood: "Alright" Depression: Denies Anxiety: Denies Thought Content: - Denies SI/HI, AH/VH, PI. States and also believes they will not kill themselves. - Denies Hopeless/Helpless Thoughts Thought Process: Linear, circumstantial at times Associations: Appropriate Speech: Normal tone and rate Judgment: Fair Insight: Fair Cognition: Memory: Short-term deficits endorsed Attention/Concentration: Grossly intact Per nursing report patient has been calm and cooperative. He has been quite depressed. He is restless regarding being stuck in ICU. ASSESSMENT 56-year-old male presents status post intentional polysubstance overdose. He will require inpatient psychiatric hospitalization for safety. At present he appears agreeable to sign in voluntarily. Diagnosis Major depressive disorder versus adjustment disorder By charted history of alcohol use disorder A total of 30 minutes was spent with the patient with more than 50% of the time spent in counseling and/or coordination of care. Suggestion: 1. Patient may not leave AMA. He will sign in voluntarily prior to inpatient psychiatry admission. If patient attempts to leave we will have to placed on physicians emergency certificate. 2. Plan for inpatient psychiatry once medically stable. Thank you for including psychiatry in this case we'll continue to follow. Subjective Subjective: as above Objective Last 24 Hrs of Vital Signs/I&O Current Medications Sig/Anny Start time Last Medication Dose Route Stop Time Status Admin Acetaminophen 650 MG Q4P PRN 09/10 1015 AC PO Levetiracetam 1,000 MG BID 09/10 1000 AC 09/10 PO 1012 Lorazepam 2 MG Q2P PRN 09/06 1845 AC 09/09 IV 0830 Magnesium Oxide 400 MG BID 09/08 1000 AC 09/10 PO 1011 Omeprazole 40 MG DAILY AC 09/10 0700 AC 09/10 PO 0659 Phytonadione 2.5 MG ONCE ONE 09/09 1730 DC 09/09 PO 09/09 1731 1937 Laboratory Tests 09/10/16 0630: Phenytoin Cancelled 09/10/16 0630: Anion Gap 9, Estimated GFR > 60, Glucose 87, Calcium 9.5, Phosphorus 3.8, Magnesium 1.8, Total Bilirubin 0.5, AST 33, ALT 72, Albumin 4.2, PT 45.5 *H, INR 4.40 *H, CBC w Diff NO MAN DIFF REQ, RBC 4.46 L, MCV 97.1 H, MCH 32.8 H, RDW 12.6, MPV 7.9, Gran % 65.2, Lymphocytes % 22.7, Monocytes % 7.3, Eosinophils % 4.5, Basophils % 0.3, Absolute Granulocytes 3.2, Absolute Lymphocytes 1.1 L, Absolute Monocytes 0.4, Absolute Eosinophils 0.2, Absolute Basophils 0, PUBS MCHC 33.8, Phenytoin 33.7 H 09/10/16 0055: PT 61.5 *H, INR 5.96 *H, Phenytoin 25.5 H 09/09/16 1845: PT 64.1 *H, INR 6.22 *H, Phenytoin 30.3 H 09/09/16 1300: PT 60.4 *H, INR 5.85 *H, Phenytoin 27.9 H Vital Signs Date Time Temp Pulse Resp B/P B/P Pulse O2 O2 Flow FiO2 Mean Ox Delivery Rate 09/10 08 98.1 62 20 141/96 09/10 0800 95 Room Air 09/10 0800 98.1 62 20 141/96 95 Room Air Room Air 09/10 0022 98.9 70 14 104/84 95 Room Air 09/10 0000 98.9 70 14 104/84 09/10 0000 94 Room Air 09/09 2200 65 13 09/10 1999 98.3 76 25 144/94 09/10 1999 95 Room Air 09/09 1600 98.4 74 20 142/70 94 Room Air Intake & Output 09/10 1600 09/10 0800 09/10 0000 Intake Total 0 650 Output Total Balance 0 650 Intake, IV 0 0 Intake, Oral 0 650 Number 0 0 Bowel Movements
--- NOTE | 2016-09-10 10:20 | Cons- Neurology ---
General Information and HPI Consulting Request Date of Consult: 09/10/16 Requested By: JANNET HAMPTON MD Reason for Consult: History of seizure disorder and CVAs in a patient with polydrug OD Source of Information: patient, old records Exam Limitations: no limitations History of Present Illness: 56-year-old man feeling increasingly depressed due to several issues that he did not wish to delve into this time admitted after an overdose on warfarin, Dilantin and other medications. He has a known history of seizures followed by Dr. Israel Tovar at [facility] with no seizures in the past 2 years. His baseline Dilantin dose has been 500 MG one day alternating with 600 MG the next and he also takes Keppra 1000 MG twice daily. 2 months ago due to difficulty walking he was seen at [place] and Dilantin level found to be quite high. DPH was held for 3 days but resumed at the prior dose. Due to complaints of left arm weakness with upper motor neuron findings imaging studies revealed multiple infarcts and he has phospholipid antibody syndrome. He has been on full anticoagulation with Coumadin with INRs in the good anticoagulated range recently through the [facility] monitoring program. Allergies/Medications Allergies: Coded Allergies: erythromycin base (UNKNOWN 09/06/16) tetracycline (UNKNOWN 09/06/16) Home Med List: Levetiracetam (Keppra) 1,000 MG TABLET 1 TAB PO BID SEIZURES (Reported) Lisinopril 10 MG TABLET 1 TAB PO DAILY HEART (Reported) Phenytoin (Dilantin) 100 MG CAPSULE 5 CAP PO Q48 SEIZURES (Reported) Phenytoin (Dilantin) 100 MG CAPSULE 6 CAP PO Q48 SEIZURES (Reported) Warfarin Sodium 7.5 MG TABLET 1 TAB PO DAILY BLOOD THINNER (Reported) Current Medications: Current Medications Sig/Anny Start time Last Medication Dose Route Stop Time Status Admin Acetaminophen 650 MG Q4P PRN 09/10 1015 AC PO Levetiracetam 1,000 MG BID 09/10 1000 AC PO Lorazepam 2 MG Q2P PRN 09/06 1845 AC 09/09 IV 0830 Magnesium Oxide 400 MG BID 09/08 1000 AC 09/09 PO 2222 Omeprazole 40 MG DAILY AC 09/10 0700 AC 09/10 PO 0659 Phytonadione 2.5 MG ONCE ONE 09/09 1730 DC 09/09 PO 09/09 1731 1937 Review of Systems Review of Systems: ROS: A complete medical systems review was obtained. He complains of numbness in the ulnar fingers of the left arm and sometimes discomfort just above the elbow on the ulnar side. He still reports some dizziness and imbalance but denied blurring of vision, headache, nausea. No other pertinent complaints were found. Past History Travel History Traveled to [place] past 21 day No Medical History Blood Transfusion Hx: No Neurological: CVA, seizure EENT: NONE Cardiovascular: hypertension Respiratory: NONE Gastrointestinal: NONE Hepatic: NONE Renal: NONE Musculoskeletal: NONE Psychiatric: depression Endocrine: NONE Blood Disorders: antiphospholipid antibody syndrome Cancer(s): NONE LOW HEEL BUILDER/Reproductive: NONE Surgical History Surgical History: 1 Family History Relations & Conditions If Any: FATHER ( of stroke at age 51). MOTHER (Alzheimer's). Psychosocial History Where Do You Live? Home Who Do You Live With? self Smoking Status: Former Smoker ETOH Use: alcoholic Illicit Drug Use: denies illicit drug use Employment History Employment: Unemployed Exam & Diagnostic Data Vital Signs and I&O Vital Signs Date Time Temp Pulse Resp B/P B/P Pulse O2 O2 Flow FiO2 Mean Ox Delivery Rate 09/10 0800 98.1 62 20 141/96 09/10 0800 95 Room Air 09/10 0800 98.1 62 20 141/96 95 Room Air Room Air 09/10 0022 98.9 70 14 104/84 95 Room Air 09/10 0000 98.9 70 14 104/84 09/10 0000 94 Room Air 09/09 2200 65 13 09/09 2000 98.3 76 25 144/94 09/09 2000 95 Room Air 09/09 1600 98.4 74 20 142/70 94 Room Air Intake & Output 09/10 1600 09/10 0800 09/10 0000 Intake Total 0 650 Output Total Balance 0 650 Intake, IV 0 0 Intake, Oral 0 650 Number 0 0 Bowel Movements Physical Exam: On exam the patient appeared generally well and in no distress. Mental status: Alert, attentive, fully oriented, no language errors, recall and general fund of knowledge seem intact. Affect somewhat flat, mild slurring of speech. Visual baxter full , Eye movements full without nystagmus, pupils midsize equal round and reactive to light. Facial movement normal bilaterally Facial sensation normal bilaterally Hearing intact bilaterally Uvula elevates midline Tongue protrusion is midline Shoulder shrug symmetric Hand greens picker and intrinsic finger muscles weaker on the left, no drift Sensation intact to primary modes Tendon reflexes normal and symmetric without pathologic signs Coordination mild ataxia on finger to nose Gait testing deferred Last 48 Hours of Lab Results: Laboratory Tests 09/10 09/10 09/10 0630 0630 0055 Chemistry Sodium (137 - 145 mmol/L) 140 Potassium (3.5 - 5.1 mmol/L) 4.6 Chloride (98 - 107 mmol/L) 102 Carbon Dioxide (22 - 30 mmol/L) 29 Anion Gap (5 - 16) 9 BUN (9 - 20 mg/dL) 13 Creatinine (0.7 - 1.2 mg/dL) 0.9 Estimated GFR (>60 ml/min) > 60 Glucose (65 - 99 mg/dL) 87 Calcium (8.4 - 10.2 mg/dL) 9.5 Phosphorus (2.5 - 4.5 mg/dL) 3.8 Magnesium (1.6 - 2.3 mg/dL) 1.8 Total Bilirubin (0.2 - 1.3 mg/dL) 0.5 AST (17 - 59 U/L) 33 ALT (21 - 72 U/L) 72 Albumin (3.5 - 5.0 g/dL) 4.2 Coagulation PT (9.4 - 12.5 SEC) 45.5 *H 61.5 *H INR (0.90 - 1.17) 4.40 *H 5.96 *H Hematology CBC w Diff NO MAN DIFF REQ WBC (4.8 - 10.8 /CUMM) 5.0 RBC (4.70 - 6.10 /CUMM) 4.46 L Hgb (14.0 - 18.0 G/DL) 14.6 Hct (42 - 52 %) 43.3 MCV (80.0 - 94.0 FL) 97.1 H MCH (27.0 - 31.0 PG) 32.8 H RDW (11.5 - 14.5 %) 12.6 Plt Count (130 - 400 /CUMM) 209 MPV (7.4 - 10.4 FL) 7.9 Gran % (42.2 - 75.2 %) 65.2 Lymphocytes % (20.5 - 51.1 %) 22.7 Monocytes % (1.7 - 9.3 %) 7.3 Eosinophils % (0 - 5 %) 4.5 Basophils % (0.0 - 2.0 %) 0.3 Absolute Granulocytes (1.4 - 6.5 /CUMM) 3.2 Absolute Lymphocytes (1.2 - 3.4 /CUMM) 1.1 L Absolute Monocytes (0.10 - 0.60 /CUMM) 0.4 Absolute Eosinophils (0.0 - 0.7 /CUMM) 0.2 Absolute Basophils (0.0 - 0.2 /CUMM) 0 PUBS MCHC (33.0 - 37.0 G/DL) 33.8 Toxicology Phenytoin (10.0 - 20.0 ug/mL) Cancelled 33.7 H 25.5 H 09/09 09/09 09/09 1845 1300 0505 Chemistry Sodium (137 - 145 mmol/L) 141 Potassium (3.5 - 5.1 mmol/L) 4.3 Chloride (98 - 107 mmol/L) 106 Carbon Dioxide (22 - 30 mmol/L) 27 Anion Gap (5 - 16) 8 BUN (9 - 20 mg/dL) 10 Creatinine (0.7 - 1.2 mg/dL) 0.9 Estimated GFR (>60 ml/min) > 60 Glucose (65 - 99 mg/dL) 91 Calcium (8.4 - 10.2 mg/dL) 9.2 Phosphorus (2.5 - 4.5 mg/dL) 3.3 Magnesium (1.6 - 2.3 mg/dL) 1.8 Total Bilirubin (0.2 - 1.3 mg/dL) 0.4 AST (17 - 59 U/L) 38 ALT (21 - 72 U/L) 72 Albumin (3.5 - 5.0 g/dL) 3.9 Coagulation PT (9.4 - 12.5 SEC) 64.1 *H 60.4 *H 53.7 *H INR (0.90 - 1.17) 6.22 *H 5.85 *H 5.20 *H Hematology CBC w Diff NO MAN DIFF REQ WBC (4.8 - 10.8 /CUMM) 4.9 RBC (4.70 - 6.10 /CUMM) 4.16 L Hgb (14.0 - 18.0 G/DL) 13.6 L Hct (42 - 52 %) 40.8 L MCV (80.0 - 94.0 FL) 98.2 H MCH (27.0 - 31.0 PG) 32.7 H RDW (11.5 - 14.5 %) 12.5 Plt Count (130 - 400 /CUMM) 197 MPV (7.4 - 10.4 FL) 7.7 Gran % (42.2 - 75.2 %) 65.6 Lymphocytes % (20.5 - 51.1 %) 21.4 Monocytes % (1.7 - 9.3 %) 9.3 Eosinophils % (0 - 5 %) 2.8 Basophils % (0.0 - 2.0 %) 0.9 Absolute Granulocytes (1.4 - 6.5 /CUMM) 3.2 Absolute Lymphocytes (1.2 - 3.4 /CUMM) 1.1 L Absolute Monocytes (0.10 - 0.60 /CUMM) 0.5 Absolute Eosinophils (0.0 - 0.7 /CUMM) 0.1 Absolute Basophils (0.0 - 0.2 /CUMM) 0 PUBS MCHC (33.0 - 37.0 G/DL) 33.3 Toxicology Phenytoin (10.0 - 20.0 ug/mL) 30.3 H 27.9 H 38.3 H 09/09 09/08 09/08 0100 1710 1105 Coagulation PT (9.4 - 12.5 SEC) 41.6 H 79.8 *H 59.6 *H INR (0.90 - 1.17) 4.02 *H 7.76 *H 5.78 *H Toxicology Phenytoin (10.0 - 20.0 ug/mL) 37.4 H 28.3 H 37.5 H Imaging/Other Studies: CT of head without contrast: FINDINGS: There is no evidence of acute intracranial hemorrhage or territorial infarction. No abnormal mass effect or midline shift is seen. There is a small chronic left occipital infarct. Rosa to white matter differentiation is otherwise well preserved. No extra-axial fluid collections are identified. No hydrocephalus. Proportional prominence of the ventricles and sulcal spaces is consistent with mild volume loss. Patchy periventricular and deep white matter hypoattenuation is consistent with mild small vessel ischemic changes. The osseous structures and soft tissues are normal. Mild opacification of the left maxillary sinus. The mastoid air cells and visualized portions of the paranasal sinuses are otherwise well aerated. IMPRESSION: No acute intracranial pathology. Assessment/Plan Assessment: Polydrug overdose, suicide attempt Current signs of Dilantin toxicity persist No active bleeding despite elevated INR History of seizures under very good control on his current combination of Dilantin and Keppra, generally without side effects. Antiphospholipid antibody syndrome, presented as a stroke syndrome affecting left arm last year. No recurrent events on anticoagulation with warfarin Recommendations: Would resume Keppra 1000 MG twice daily at the present time, levels will not return in a timely manner and there is concern about the risk of breakthrough seizures Hold Dilantin as long as necessary until Dilantin level falls into the mid to high therapeutic range and then resume his standard dose Dilantin levels will need to be checked frequently thereafter for dose adjustment ICU staff asked about alternate antiseizure medication: There has been no significant side effects with good seizure control on the current combination which I recommend be continued a change to alternate medications at this time could actually result in less good seizure control Consult Acknowledgment - Thank you for your consult request.
--- NOTE | 2016-09-10 13:41 | NUR ---
RESUMED PT CARE AT 0730. PT HAS BEEN APPROPRIATE, A/O X 3. ABLE TO HAVE COHERENT DISCUSSIONS. MOOD IS CALM. NIH 0, CIWA 0. CMS X 4. OOB WALKING UNIT W SUPERVISION. PER PT-PT ABLE TO DO STAIRS. 1:1 SITTER AT BEDSIDE. SAFETY MAINTAINED. SR 60-90'S. BP 141/96, RA 95%. ACCUCHECKS CHANGED TO Q6. 2356=239. PT RESTARTED ON KEPPRA PO. PT TOLERATING REGULAR DIET, VOIDS QS, BM TODAY. -N/V/D. PT TRANSFERING TO TELE ROOM 178. REPORT GIVEN TO GABBY
--- NOTE | 2016-09-10 14:08 | NUR ---
ACCUCHECKS DISCONTINUED.
[2016-09-10 14:53] VITALS: BP 142/77
--- NOTE | 2016-09-10 16:06 | Patient Discharge Instructions ---
Discharge Instructions General Discharge Information You were seen/treated for: Polypharmacy abuse- dilantin, lisinopril, coumadin, keppra You had these procedures: None Special Instructions: Follow up with psychiatrist within 1-2 weeks of discharge Follow up with neurologist within 1-2weeks of discharge Follow up with PCP within 1-2 weeks of discharge Continue taking your Keppra, dilantin for seizures Continue taking Coumadin based on inr sc lovenox till 09/14 for bridging with coumadin goal inr 2-3 Diet Continue normal diet: Yes Activity Full Activity/No Limits: Yes Acute Coronary Syndrome Inclusion Criteria At DC or during hospital stay patient has or had the following: ACS DIAGNOSIS No Discharge Core Measures Meds if any: Prescribed or Continued at Discharge Meds if any: NOT Prescribed or Continued at Discharge Congestive Heart Failure Inclusion Criteria At DC or during hospital stay patient has or had the following: CHF DIAGNOSIS No Discharge Core Measures Meds if any: Prescribed or Continued at Discharge Meds if any: NOT Prescribed or Continued at Discharge Cerebrovascular accident Inclusion Criteria At DC or during hospital stay patient has or had the following: CVA/TIA Diagnosis No Discharge Core Measures Meds if any: Prescribed or Continued at Discharge Meds if any: NOT Prescribed or Continued at Discharge Venous thromboembolism Inclusion Criteria VTE Diagnosis No VTE Type NONE VTE Confirmed by (Test) NONE Discharge Core Measures - Per Current guidelines, there needs to be overlap - treatment for the first 5 days of Warfarin therapy. - If discharged on Warfarin prior to 5 days of - overlap therapy, the patient will need to be - assessed for post discharge needs including - *Post discharge parental anticoagulation - *Warfarin and/or parental anticoagulation education - *Follow up date to check INR post discharge At least 5 days overlap therapy as Inpatient No Meds if any: Prescribed or Continued at Discharge Note: Overlap Therapy is Warfarin and Anticoagulant Meds if any: NOT Prescribed or Continued at Discharge
--- NOTE | 2016-09-10 16:27 | Discharge Summary ---
Visit Information Visit Dates Admission Date: 09/06/16 Discharge Date: 09/11/2016 Hospital Course Course Attending Physician: JANNET HAMPTON MD Primary Care Physician: LACY DRUMMOND,TIFFANIE Dillard Other Care Providers: psychiatry dr. morrow- neurology Consulting Request: Consulting Specialty: Psychiatry Consulting Physician: suicide attempt, depression Hospital Course: This is a 56-year-old man with past medical history of seizures on Dilantin and Keppra, history of multiple strokes, antiphospholipid antibody syndrome and history of blood clot in brain on coumadin, hypertension and previous suicide attempt for which he was admitted at [facility] 3 weeks ago. He was BIBA after he was found altered and lethergic by his family. Patient admitted for intentional overdose of his Keppra, Dilantin, Coumadin and lisinopril at 8am 09/06/2016. patient was drowsy with slurred speech but arousable. He was oriented 3. He was complaining of nausea, Gen weakness and denies any chest pain or discomfort, palpitations, breathing difficulty, abdominal pain, any change in urinary or bowel habits. He also denied any headache, vision changes, weakness or numbness of any part of his body. Daughter was at bedside. He lives alone in his apartment. He sees a neurologist at [facility]. Patient denies smoking. He normally drinks 2 shots of vodka every day. Last drink 2 weeks ago. Currently is unemployed. 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 Denies using any illicit drugs like marijuana or cocaine. He also admitted that he is being depressed recently due to being unemployed and unable to pay pills. Upon arrival to ER he was alert, awake, oriented. His vitals were temperature 96.7, pulse 81, respiratory rate 20, blood pressure 131/77 and oxygen saturation 95% on room air. Pertinent labs on admission: CBC, BEP unremarkable. Albumin normal. LFTs are also normal. INR 2.68. U tox positive for Dilantin levels > 40. Neg acetaminophen or Salicylate levels. EKG: Mild T wave changes in inferior leads. No QRS or QTc interval prolongation. CT head: No acute intracranial pathology. He was given 1 L bolus of normal saline in ER. ER physician contacted poison control who recommended supportive care with IV fluids, serial Dilantin levels every 6-8 hours until they start trending down and closer monitoring in ICU. suicide attempt/polypharmacy overdose patient was admitted in ICU because of polypharmacy overdose (Keppra, Dilantin, Coumadin and lisinopril) for closer monitoring. Later transferred to telemetry floor once he was stable after 48 hours. Serial EKGs were done to monitor QTc interval and ST-T wave changes. Serial Dilantin levels where done till Dilantin trended down- 25. His mental status improved. He received gentle hydration. Dilantin, Keppra, Coumadin, lisinopril were held initially. Received Ativan as required for anxiety. Maintained on aspiration and seizure precautions. Maintained on fall precautions. h/o seizures He has a known history of seizures followed by Dr. Israel Tovar at [facility] with no seizures in the past 2 years. His baseline Dilantin dose has been 500 MG one day alternating with 600 MG the next and he also takes Keppra 1000 MG twice daily. 2 months ago due to difficulty walking he was seen at [facility] and Dilantin level found to be quite high. DPH was held for 3 days but resumed at the prior dose. History of seizures under very good control on his current combination of Dilantin and Keppra, generally without side effects. Dilantin and Keppra where on hold initially because of poly-pharmacy overdose. We resumed Keppra 1000 MG twice daily and Dilantin home dose. Supratherapeutic INR h/o Antiphospholipid antibody syndrome/blood clot in brain/strokes in the past Patient usually takes Coumadin for prophylaxis. Admitted for poly pharmacy overdose. Coumadin was on hold in the hospital because of supratherapeutic INR. 2.68, 3.56, 4.17, 5.87, 7.07. Patient received vitamin K 10 mg orally Twice and 3 fresh frozen plasma in the hospital because of supratherapeutic INR. Later INR trended down to 1.68. Patient was started on subcutaneous Lovenox on 09/11/2016 - 90 mg twice daily. Please continue Lovenox subcutaneous until 10/15/2016 and bridge him with Coumadin daily. Please check daily INRs and dose him with Coumadin. Takes 7.5 mg Coumadin at home. History of suicide attempts He reported no formal treatments. no detox/rehab inthe past. no medication trials and been drinking since age 14 with heavier periods of consumpsion. continued 1;1 sitter. He has to go to inpatient psych admission as he is medically cleared now, has high risk factors ie access to shot gun at home, hopeless and lack of support Hypertension continue lisinopril Complications: none Allergies: Coded Allergies: erythromycin base (UNKNOWN 09/06/16) tetracycline (UNKNOWN 09/06/16) Significant Procedures: none Pertinent Lab Results: head ct FINDINGS: There is no evidence of acute intracranial hemorrhage or territorial infarction. No abnormal mass effect or midline shift is seen. There is a small chronic left occipital infarct. Rosa to white matter differentiation is otherwise well preserved. No extra-axial fluid collections are identified. No hydrocephalus. Proportional prominence of the ventricles and sulcal spaces is consistent with mild volume loss. Patchy periventricular and deep white matter hypoattenuation is consistent with mild small vessel ischemic changes. The osseous structures and soft tissues are normal. Mild opacification of the left maxillary sinus. The mastoid air cells and visualized portions of the paranasal sinuses are otherwise well aerated. IMPRESSION: No acute intracranial pathology. Disposition Summary Disposition Principal Diagnosis: Polypharmacy overdose-Dilantin, lisinopril, Coumadin, Keppra Supratherapeutic INR Additional Diagnosis: History of seizures History of hypertension Discharge Disposition: going to [place] inpatient psychiatry Discharge Instructions General Discharge Information Code Status: Full Code Patient's Diet: As tolerated Patient's Activity: As tolerated Follow-Up Instructions/Appts: Follow-up with primary care doctor in 1-2 weeks after discharge Follow-up with neurologist in 1-2 weeks after discharge Follow-up with psychiatrist in 1-2 weeks after discharge Medications at Discharge Discharge Medications: Continue taking these medications: Levetiracetam (Keppra) 1,000 MG TABLET 1 Tablet ORAL TWICE DAILY Phenytoin (Dilantin) 100 MG CAPSULE 5 Capsule ORAL EVERY 48 HOURS (Every 2 days) Phenytoin (Dilantin) 100 MG CAPSULE 6 Capsule ORAL EVERY 48 HOURS (Every 2 days) Lisinopril (Lisinopril) 10 MG TABLET 1 Tablet ORAL DAILY Qty = 90 Warfarin Sodium (Warfarin Sodium) 7.5 MG TABLET 1 Tablet ORAL DAILY Qty = 100 Folic Acid (Folic Acid) 1 MG TABLET 1 Tablet ORAL DAILY Cholecalciferol (Vitamin D3) (Vitamin D) 1,000 UNIT TABLET 1 Tablet ORAL DAILY Multivitamin (Daily Multiple Vitamin) 1 EACH TABLET 1 Tablet ORAL DAILY Start taking the following new medications: Enoxaparin Sodium (Lovenox) 80 MG/0.8 ML SYRINGE 90 Milligram Inject into fatty tissue TWICE DAILY Qty = 7 No Refills Instructions: needs sc lovenox till 09/14 has to bridge with coumadin Copies To: LACY DRUMMOND,TIFFANEI Dillard Attending MD Review Statement Documenting Attending: JANNET HAMPTON MD Other Findings: The patient was seen and agree with the above summary of care. Will discharge to [facility]/Psychiatry for further psych evaluation. Will bridge with Lovenox until INR therapeutic and resume prior anti-seizure medications as per Neurology.
[2016-09-10 21:25] LABS: PT 23.5 SEC (9.4-12.5)
[2016-09-10 22:36] VITALS: BP 108/76
[2016-09-11 07:03] VITALS: BP 98/62
[2016-09-11 08:09] LABS: ABSOLUTE BASOPHIL COUNT 0 /CUMM (0.0-0.2); ABSOLUTE EOSINOPHIL COUNT 0.4 /CUMM (0.0-0.7); ABSOLUTE GRANULOCYTE CT 4.3 /CUMM (1.4-6.5); ABSOLUTE LYMPH COUNT 1.3 /CUMM (1.2-3.4); ABSOLUTE MONOCYTE COUNT 0.6 /CUMM (0.10-0.60); BASOPHIL % 0.4 % (0.0-2.0); EOSINOPHIL % 5.7 % (0-5); GRANULOCYTE % 64.5 % (42.2-75.2); HEMATOCRIT 47.1 % (42-52); MEAN CORPUSCULAR HGB 32.7 PG (27.0-31.0); MEAN CORPUSCULAR HGB CONC 33.5 G/DL (33.0-37.0); MEAN CORPUSCULAR VOLUME 97.6 FL (80.0-94.0); MEAN PLATELET VOLUME 8.3 FL (7.4-10.4); PLATELET COUNT 254 /CUMM (130-400); RBC DISTRIBUTION WIDTH 12.3 % (11.5-14.5); RED BLOOD CELL CT 4.83 /CUMM (4.70-6.10); WHITE BLOOD CELL COUNT 6.7 /CUMM (4.8-10.8)
[2016-09-11 08:26] LABS: PT 17.6 SEC (9.4-12.5)
--- NOTE | 2016-09-11 09:19 | PN- Housestaff ---
See Addendum Subjective Follow-up For: AMS Polypharmacy overdose Subjective: Patient has no complaints. No acute events overnight. Review of Systems Constitutional: Reports: see HPI. Objective Last 24 Hrs of Vital Signs/I&O Vital Signs Date Time Temp Pulse Resp B/P B/P Pulse O2 O2 Flow FiO2 Mean Ox Delivery Rate 09/11 1438 99.0 82 18 132/90 97 Room Air 09/11 0703 97.8 66 18 98/62 96 Room Air 09/10 2236 98.6 71 18 108/76 95 Intake & Output 09/11 1600 09/11 0800 09/11 0000 Intake Total 480 500 Output Total 500 Balance -20 500 Intake, Oral 480 500 Output, Urine 500 Patient 197 lb Weight Physical Exam General Appearance: Alert, Oriented X3, Cooperative, No Acute Distress HEENT: Atraumatic, PERRLA Neck: Supple, No JVD Cardiovascular: Normal S1, Normal S2, No Murmurs Lungs: Clear to Auscultation, Normal Air Movement Abdomen: Normal Bowel Sounds, Soft, No Tenderness Extremities: No Cyanosis, No Edema, No Tenderness/Swelling Current Medications: Current Medications Sig/Anny Start time Last Medication Dose Route Stop Time Status Admin Acetaminophen 650 MG Q4P PRN 09/10 1015 AC PO Cholecalciferol 1,000 IU DAILY 09/11 1339 AC PO Enoxaparin Sodium 90 MG BID 09/11 1007 DC SC 09/14 2300 Enoxaparin Sodium 90 MG BID 09/11 1007 AC 09/11 SC 1158 Folic Acid 1 MG DAILY 09/11 1338 AC PO Levetiracetam 1,000 MG BID 09/10 1000 AC 09/11 PO 0922 Lorazepam 2 MG Q2P PRN 09/06 1845 AC 09/09 IV 0830 Magnesium Oxide 400 MG BID 09/08 1000 AC 09/11 PO 0922 Multivitamins 1 TAB DAILY 09/11 1337 AC PO Omeprazole 40 MG DAILY AC 09/10 0700 AC 09/11 PO 0554 Warfarin Sodium 7.5 MG COUMADIN 1700 ONE 09/11 1700 AC PO 09/11 1701 Last 24 Hrs of Lab/Naif Results Last 24 Hrs of Labs/Mics: Laboratory Tests 09/11/16 0700: Anion Gap 13, Estimated GFR > 60, Glucose 100 H, Calcium 9.9, Phosphorus 4.0, Magnesium 1.8, Total Bilirubin 0.6, AST 33, ALT 74 H, Albumin 4.9, PT 17.6 H, INR 1.68 H, CBC w Diff NO MAN DIFF REQ, RBC 4.83, MCV 97.6 H, MCH 32.7 H, RDW 12.3, MPV 8.3, Gran % 64.5, Lymphocytes % 20.3 L, Monocytes % 9.1, Eosinophils % 5.7 H, Basophils % 0.4, Absolute Granulocytes 4.3, Absolute Lymphocytes 1.3, Absolute Monocytes 0.6, Absolute Eosinophils 0.4, Absolute Basophils 0, PUBS MCHC 33.5, Phenytoin 26.2 H 09/10/161999: PT 23.5 H, INR 2.26 H, Phenytoin 25.1 H Assessment/Plan Assessment: A: 56-year-old man with past medical history of seizures on Dilantin and Keppra, history of multiple strokes on coumadin, antiphospholipid antibody syndrome, hypertension and previous suicide attempt for which he was admitted at [facility] 3 weeks ago presented with polypharmacy overdose (keppra, dilantin,coumadin, lisinopril) transferred from ICU for further monitoring. P: 1. Polypharmacy overdose (keppra,dilantin,coumadin,lisinopril) * Psych consulted, patient will be transferred to inpatient psych * Dilatin levels trending down-26.2 2. Supratherapeutic INR (PT-45.5, INR -4.4) - trending down * Resume Warfarin 7.5mg 3. HTN * Resume home meds 4. History of APLA DVT prophylaxis-Lovenox Code-Full Dispo-Transfer to inpatient psych as per psych rec Problem List: 1. Dilantin overdose 2. Suicide attempt by drug ingestion Pain Ratin Pain Location: N/A Pain Goal: Remain pain free Pain Plan: N/A Tomorrow's Labs & Rationales: INR on Coumadin Consulting Request: Consulting Specialty: Psychiatry Consulting Physician: suicide attempt, depression
--- NOTE | 2016-09-11 10:09 | PN- Psychiatry ---
Assessment/Plan Impression: 56-year-old male brought in by ambulance on 09/06/2016 status post intentional overdose on Dilantin, lisinopril, warfarin, and Keppra. Currently on telemetry unit. Dx: Unspecified depressive disorder, s/p recent suicide attempt by OD Rule out MDD v. Adjustment disorder Hx Alcohol use by record Suggestion: 1. Given recent suicide attempt, recommend client be admitted to inpatient psychiatry once medically cleared. Client agreeable to be admitted volunarily. 2. He may not leave AMA, if he attempts to leave recommend placing on PEC Thank you for including psychiatry in this case. Subjective Subjective: Client presents this morning endoring stable moods. His affect is congruent with full range. His eye contact and speech are WNL. He is talkative with some mild circumstantial thought processes. He is in hospital attire, seen sitting up, alert in bed. He has a 1:1 sitter. He endorses adequate sleep, energy, and appetite. He denies suicidal ideation, intent, and plan. He denies psychosis. He spends much of the time discussing his previous work history, and expresses some concerns regarding upcoming job interviews that he is rescheduling due to his hospitalization. He is agreeable to go to inpatient psychiatry volunarily once medically cleared. Objective Last 24 Hrs of Vital Signs/I&O Current Medications Sig/Anny Start time Last Medication Dose Route Stop Time Status Admin Acetaminophen 650 MG Q4P PRN 09/10 1015 AC PO Levetiracetam 1,000 MG BID 09/10 1000 AC 09/11 PO 0922 Lorazepam 2 MG Q2P PRN 09/06 1845 AC 09/09 IV 0830 Magnesium Oxide 400 MG BID 09/08 1000 AC 09/11 PO 0922 Omeprazole 40 MG DAILY AC 09/10 0700 AC 09/11 PO 0554 Laboratory Tests 09/11 Chemistry Sodium (137 - 145 mmol/L) 140 Potassium (3.5 - 5.1 mmol/L) 4.6 Chloride (98 - 107 mmol/L) 102 Carbon Dioxide (22 - 30 mmol/L) 26 Anion Gap (5 - 16) 13 BUN (9 - 20 mg/dL) 16 Creatinine (0.7 - 1.2 mg/dL) 1.0 Estimated GFR (>60 ml/min) > 60 Glucose (65 - 99 mg/dL) 100 H Calcium (8.4 - 10.2 mg/dL) 9.9 Phosphorus (2.5 - 4.5 mg/dL) 4.0 Magnesium (1.6 - 2.3 mg/dL) 1.8 Total Bilirubin (0.2 - 1.3 mg/dL) 0.6 AST (17 - 59 U/L) 33 ALT (21 - 72 U/L) 74 H Albumin (3.5 - 5.0 g/dL) 4.9 Coagulation PT (9.4 - 12.5 SEC) 17.6 H 23.5 H INR (0.90 - 1.17) 1.68 H 2.26 H Hematology CBC w Diff NO MAN DIFF REQ WBC (4.8 - 10.8 /CUMM) 6.7 RBC (4.70 - 6.10 /CUMM) 4.83 Hgb (14.0 - 18.0 G/DL) 15.8 Hct (42 - 52 %) 47.1 MCV (80.0 - 94.0 FL) 97.6 H MCH (27.0 - 31.0 PG) 32.7 H RDW (11.5 - 14.5 %) 12.3 Plt Count (130 - 400 /CUMM) 254 MPV (7.4 - 10.4 FL) 8.3 Gran % (42.2 - 75.2 %) 64.5 Lymphocytes % (20.5 - 51.1 %) 20.3 L Monocytes % (1.7 - 9.3 %) 9.1 Eosinophils % (0 - 5 %) 5.7 H Basophils % (0.0 - 2.0 %) 0.4 Absolute Granulocytes (1.4 - 6.5 /CUMM) 4.3 Absolute Lymphocytes (1.2 - 3.4 /CUMM) 1.3 Absolute Monocytes (0.10 - 0.60 /CUMM) 0.6 Absolute Eosinophils (0.0 - 0.7 /CUMM) 0.4 Absolute Basophils (0.0 - 0.2 /CUMM) 0 PUBS MCHC (33.0 - 37.0 G/DL) 33.5 Toxicology Phenytoin (10.0 - 20.0 ug/mL) 26.2 H 25.1 H Vital Signs Date Time Temp Pulse Resp B/P B/P Pulse O2 O2 Flow FiO2 Mean Ox Delivery Rate 09/11 0703 97.8 66 18 98/62 96 Room Air 09/10 2236 98.6 71 18 108/76 95 09/10 1453 98.5 78 20 142/77 98 Room Air Intake & Output 09/11 1600 09/11 0800 09/11 0000 Intake Total 480 500 Output Total 500 Balance -20 500 Intake, Oral 480 500 Output, Urine 500
[2016-09-11] MEDS ORDERED: LOVENOX80 MG/0.1 SC (10:11)
[2016-09-11] MEDS ORDERED: FOLIC ACID1 M1 PO (13:35)
[2016-09-11] MEDS ORDERED: DAILY MULTIPLE1 EACH PO (13:36)
[2016-09-11] MEDS ORDERED: VITAMIN D1000 UNIT PO (13:36)
[2016-09-11 14:38] VITALS: BP 132/90
--- NOTE | 2016-09-11 16:08 | NUR ---
PER [facility] AIDE-PT ALLOWED TO HAVE PLASTIC UTENSILS. NO LONGER NEEDS FINGER FOODS. DIET ORDER CHANGED. DIETARY SERVICES MADE AWARE AND WILL COME TAKE NEW ORDER. DR BARR AWARE. AWAITING [facility] CALL TO TRANSFER PT THERE.
[2016-09-11 18:37] VITALS: BP 132/90
== END 2016-09-11 19:30 | disposition other institution (70) | DRG 812 ==
LOC: ERH 13:22 → ERHI 16:38 → 1NO 16:38 → CRI 16:38 → EDBEDREQ 17:52 → ENRESERV 19:18 → ENTRNSPT 20:26 → CRI 21:16 → CMPTRNSPT 22:19 → CRI 09-09 18:50 → 1NO 09-10 14:30 → ENPENDDIS 09-11 10:22 → 1NO 09-11 10:35
PROVIDERS: Hospitalist; Internal Medicine; Internal Medicine Interventional Cardiology; Physician Assistant Medical; Student in an Organized Health Care Education/Training Program; ADMIT Internal Medicine
DX: T42.0X2A Poisoning by hydantoin derivatives, intentional self-harm, initial encounter (principal); T45.512A Poisoning by anticoagulants, intentional self-harm, initial encounter; Z56.0 Unemployment, unspecified; D68.61 Antiphospholipid syndrome; T14.91 Suicide attempt; G40.909 Epilepsy, unspecified, not intractable, without status epilepticus; T42.6X2A Poisoning by other antiepileptic and sedative-hypnotic drugs, intentional self-harm, initial encounter; R41.82 Altered mental status, unspecified; T46.4X2A Poisoning by angiotensin-converting-enzyme inhibitors, intentional self-harm, initial encounter; Z63.5 Disruption of family by separation and divorce; I10 Essential (primary) hypertension; F10.20 Alcohol dependence, uncomplicated; Y90.0 Blood alcohol level of less than 20 mg/100 ml; F32.9 Major depressive disorder, single episode, unspecified; Y92.019 Unspecified place in single-family (private) house as the place of occurrence of the external cause; Z86.73 Personal history of transient ischemic attack (TIA), and cerebral infarction without residual deficits
CPT/HCPCS: 1NP; CCU; 36415; 80307; 81001; 82436; 86920; 86922; 93005; 93010; 96360; 96361; 97116-GO; 97161-GP; 97530-GO; G0480; J1650; J1953; J2405; J2765; J3490; J7042